=== PATIENT | male | born 1955 | race Caucasian/White ===

== ENCOUNTER → 2016-11-24 | Outpatient (CLI) | payer OTHER ==
--- NOTE | 2016-11-24 08:57 | US ---
EXAMINATION TYPE: US abdomen complete DATE OF EXAM: 11/24/2016 7:51 AM COMPARISON: Correlation CT 01/01/2016. CLINICAL HISTORY: 61-year-old male with LLQ pain with constipation, on meds for cholesterol. TECHNIQUE: Multiple sonographic images of the abdomen were obtained. FINDINGS: EXAM MEASUREMENTS: Liver Length: 16.4cm Gallbladder Wall: 0.2cm CBD: 0.3cm Spleen: 10.0cm Right Kidney: 12.0 x 8.5 x 6.1cm Left Kidney: 12.7 x 6.4 x 5.8cm ANATOMY: Pancreas: Suboptimal visualization of the pancreatic head and tail secondary to shadowing from bowel gas. Visualized neck and body show no gross abnormality. Liver: Borderline enlarged with diffuse increased echogenicity and far field attenuation. The seconda ry and limits assessment for focal lesion. Gallbladder: No abnormal gallbladder distention, wall thickening, pericholecystic fluid, or shadowin g calculi. Evidence for sonographic Manriquez's sign: no CBD: Within normal limits. Spleen: Within normal limits. 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 No hydronephrosis. Left Kidney: No hydronephrosis. There is a 1.5 cm hypoechoic structure exophytic from the upper to m id pole posterior through transmission. Some internal echoes are felt to be artifactual or could repr esent debris. Upper IVC: Suboptimally visualized. Abd Aorta: No evidence for A l IMPRESSION: Borderline hepatomegaly with a marked hepatic steatosis. Correlate with LFTs, lipid profile, and desiree ent risk factors. Normal Values: Liver Length: < 16cm wnl, 17-18cm upper limits, >18cm enlarged Spleen Length = < 13cm Renal Length = 9 - 12cm GB Wall: < 0.3cm CBD: < 0.6cm or < 1.0cm post cholecystectomy
--- NOTE | 2016-11-24 08:59 | US ---
EXAMINATION TYPE: US pelvic limited for male patient DATE OF EXAM: 11/24/2016 7:18 AM COMPARISON: None. CLINICAL HISTORY: 61-year-old male with LLQ pain with constipation. TECHNIQUE: Multiple transabdominal sonographic images of the pelvis were obtained. FINDINGS: The bladder shows no gross abnormality. Both ureteral jets are visualized. Post void volume = 15.3ml, within normal limits. No abnormal fluid collection in the pelvis. IMPRESSION: Bladder shows no gross abnormality. There is some residual post void bladder volume that falls within normal limits; no sonographic evidence for urinary retention. MTDD
--- NOTE | 2016-11-24 10:34 | US ---
EXAMINATION TYPE: US scrotum with doppler. TECHNIQUE: Multiple sonographic images of the scrotum were obtained. Color Doppler and spectral wavef orm analysis of the testicular arteries and veins. DATE OF EXAM: 11/24/2016 8:15 AM COMPARISON: NONE CLINICAL HISTORY: 61-year-old male with scrotal pain at rest for the past 6 months; prior vasectomy w ith reversal ~ 1980. FINDINGS: TESTICLES: Right Testicle: 4.1 x 2.6 x 2.0 cm Left Testicle: 4.5 x 2.3 x 2.1 cm The testicles are relatively symmetrical in size with normal homogeneous echotexture and no hyperemia . There is satisfactory arterial and venous flow on both sides. EPIDIDYMIS HEAD: Right Epididymis: 0.9 x 1.0 x 0.8 cm with a 3 mm epididymal head cyst. Left Epididymis: 0.5 x 1.1 x 0.7 cm with an 8 mm mildly complex epididymal head cyst or spermatoce le. There are moderate bilateral hydroceles with internal low-level echoes. IMPRESSION: 1. No evidence for epididymoorchitis or testicular torsion. 2. An epididymal head cyst on either side, larger on the left side with mild complexity, possible 8 m m spermatocele. 3. Slightly complicated, moderate-sized bilateral hydroceles. Low level echoes suggest internal debri s.
== END ==
LOC: RADUSWWP 07:01
PROVIDERS: ATTEND Family Medicine
DX: R16.0 Hepatomegaly, not elsewhere classified (principal); K76.0 Fatty (change of) liver, not elsewhere classified; N50.3 Cyst of epididymis; N43.3 Hydrocele, unspecified
CPT/HCPCS: 76700; 76856; 76857; 76870; 93975

== ENCOUNTER → 2019-11-20 | Outpatient (CLI) | payer OTHER ==
--- NOTE | 2019-11-20 22:15 | MR ---
EXAMINATION TYPE: MR shoulder RT wo con DATE OF EXAM: 11/20/2019 COMPARISON: NONE HISTORY: Right shoulder pain TECHNIQUE: Multiplanar, multisequence imaging of the right shoulder is performed without contrast. FINDINGS: Rotator Cuff: Distal supraspinatus and infraspinatus tendons are intact with increased signal distall y most prominent in infraspinatus tendon. Subscapularis tendon intact axial image 8. Rotator cuff mu scle bulk preserved. Acromioclavicular Joint: Moderate narrowing and spurring with moderate to severe capsular hypertrophy . Loss of underlying fat plane. Distal acromion morphology unremarkable. Glenohumeral Joint: Moderate to severe narrowing with small to moderate size effusion. No significant spurring. Labrum: The labrum appears grossly intact given limitation of non-arthrogram study. Biceps Tendon: The long head of biceps is in normal location within bicipital groove. Bone marrow signal: No focal abnormal marrow signal is appreciated. Other: No additional significant abnormality is appreciated. IMPRESSION: 1. Tendinosis of distal infraspinatus tendon without rotator cuff or labral tear. 2. Moderate to severe acromioclavicular and glenohumeral joint arthropathy as detailed above.
--- NOTE | 2019-11-20 22:18 | MR ---
EXAMINATION TYPE: MR hip RT wo con DATE OF EXAM: 11/20/2019 COMPARISON: CT abdomen and pelvis January 01, 2016 HISTORY: Right hip pain Standard multiplanar, multisequence MRI departmental protocol Multiplanar, multisequence images of the pelvis focusing on the right hip were acquired. FINDINGS: There is symmetric moderate axial joint space loss in both hips with small to moderate join t effusion slightly greater on the right. No significant spurring or subchondral cystic change. Femor al head shapes are maintained bilaterally. Normal signal intensity is preserved without suspicious ed donita or avascular necrosis. No suspicious edema level of greater lesser trochanters bilaterally. Asymm etric small fat-containing right inguinal hernia. Symmetric benign appearing bilateral groin lymph no edison. Muscle bulk is preserved in both thighs. Some diverticula in the visualized distal sigmoid colon. Prostate gland not well-visualized suspected small in size or surgically absent. No concerning pelvic fluid collection or adenopathy. IMPRESSION: Moderate degenerative changes in both hips as detailed above. Asymmetrically slightly lar lavon small to moderate sized right hip joint effusion noted.
== END | disposition home or self-care (01) ==
LOC: RADMRIMAIN 11:12
DX: M16.11 Unilateral primary osteoarthritis, right hip (principal); M75.81 Other shoulder lesions, right shoulder; M12.811 Other specific arthropathies, not elsewhere classified, right shoulder

== ENCOUNTER 2021-01-01 06:26 | Day surgery (SDC) | payer OTHER ==
[2020-12-30 11:21] VITALS: BMI 36.0
--- NOTE | 2020-12-31 09:39 | HP ---
HISTORY AND PHYSICAL CHIEF COMPLAINT: Right shoulder pain. HISTORY OF PRESENT ILLNESS: The patient is a 65-year-old right-hand dominant gentleman who presents with right shoulder pain worsening over the past 3 months. He is having pain with overhead use and at night. He has tried an injection in addition to therapy without much relief. He has also tried medications and lidocaine patch. He rates his pain 8/10. PAST MEDICAL HISTORY: Significant for heart disease with an arrhythmia, prostate cancer, asthma, and hypercholesterolemia. PAST SURGICAL HISTORY: Significant prostatectomy. CURRENT MEDICATIONS: 1. Aspirin. 2. Naprosyn. 3. [place]. 4. Simvastatin. ALLERGIES: He notes allergies to SULFA. FAMILY HISTORY: Significant for diabetes and heart disease. SOCIAL HISTORY: Significant for previous tobacco use. REVIEW OF SYSTEMS: Sixteen-point review of systems otherwise is reviewed and is noncontributory. PHYSICAL EXAMINATION: On examination, the patient is approximately 5 feet 10 inches, 246 pounds of endomorphic habitus. HEENT exam is nonfocal. Neck is supple. On examination of the right shoulder, he is tender about the anterior subacromial space. He has moderate subacromial crepitus. Active range of motion forward elevation 145 degrees, external rotation with arm at side 70 degrees, internal rotation to L1. Motor strength is 5 minus over 5 for abduction and external rotation. Impingement test, Neer test are positive. His distal neurovascular exam appears intact in the right upper extremity. X-rays of the right shoulder obtained in the office show a type 3 acromion. Mild glenohumeral joint space narrowing is noted. Humeral head to acromial distance is mildly diminished. MRI report 11/20/2019 of the right shoulder shows acromioclavicular joint arthritis along with rotator cuff tendinitis. IMPRESSION: 1. Right shoulder impingement with symptomatic rotator cuff tendinitis. 2. Right acromioclavicular joint arthritis. 3. Right proximal bicipital tendinitis. RECOMMENDATIONS: I talked to the patient at length regarding his condition along with treatment options. At this point, he is continuing to have significant pain and symptomatology despite conservative measures. After thorough discussion, he opts to proceed with surgery. We will plan to proceed with arthroscopic evaluation with probable subacromial decompression, rotator cuff debridement, distal clavicular resection, possible biceps tenotomy. We will likely perform that as an outpatient procedure. Risks and benefits were discussed at length in layman's terms. MMODL / IJN: [id number] /
[~2021-01-01 06:26] MED LIST: DEXAMETHASONE SOD PHOSPHATE 4 MG/ML 1 ML VIAL IV ONE; LACTATED RINGERS 1,000 ML IV SCH; MIDAZOLAM 2 MG/2 ML VIAL IV PRN; ONDANSETRON 4 MG/2 ML VIAL IVP ONE
[2021-01-01] MEDS ORDERED: HYDROmorphone 0.5 MG/0.5 ML SYRINGE IVP PRN (07:00)
[2021-01-01] MEDS ORDERED: LIDOCAINE 1% (10MG/ML) FOR IV START INTRADERMA ONE (07:00)
[2021-01-01] MEDS ORDERED: MIDAZOLAM 2 MG/2 ML VIAL IVP ONE (07:53)
[2021-01-01] MEDS ORDERED: ROPIVACAINE 5 MG/ML 30 ML VIAL ONE (08:00)
[2021-01-01] MEDS ORDERED: LIDOCAINE 1% INJ 10MG/ML (20 ML MDV) ONE (08:00)
[2021-01-01] MEDS ORDERED: fentaNYL (PF) 50 MCG/ML 2 ML AMP ONE (08:00)
[2021-01-01] MEDS ORDERED: SUCCINYLCHOLINE CHLORIDE VIAL 200 MG/10 ML VIAL IV ONE (08:00)
[2021-01-01] MEDS ORDERED: PROPOFOL 10 MG/ML 20 ML VIAL IV ONE (08:00)
[2021-01-01] MEDS ORDERED: EPINEPHrine (PF) 1 ML in SODIUM CHLORIDE 0.9% IRRIGATIO 3,000 ML IRRIGATION ONE ×4 (08:30)
[2021-01-01 09:50] VITALS: TEMP 97.6
--- NOTE | 2021-01-01 09:50 | P.ANPRN ---
Procedure Note - Anesthesia - Nerve Block Performed Right Interscalene Time Out Performed: Yes (:52) Date of Procedure: 01/01/21 Procedure Start Time: Procedure Stop Time: :08 Location of Patient: PreOp Indication: Acute Post-Operative Pain, Requested by Surgeon (Dr Nicole) Sedation Type: Sedate with meaningful contact maintained Preparation: Sterile Prep Position: Supine Catheter: None Needle Types: Pajunk Needle Gauge: Other (see comment) (22g) Ultrasound used to visualize needle placement: Yes Ultrasound used to observe medication spread: Yes Injectate: 0.5% Ropivacaine (see comment for volume) (20cc) Blood Aspirated: No Pain Paresthesia on Injection Noted: No Resistance on Injection: Normal Image Stored and Saved: Yes Events: Uneventful and Well Tolerated
--- NOTE | 2021-01-01 09:50 | P.OP ---
Date of Procedure: 01/01/21 Preoperative Diagnosis: Symptomatic right rotator cuff tear/impingement Postoperative Diagnosis: Same in addition to high-grade partial-thickness tear intra-articular portion long head of biceps, acromioclavicular joint arthritis/impingement Procedure(s) Performed: Right shoulder arthroscopic subacromial decompression/biceps tenotomy/distal clavicular resection/rotator cuff repair Implants: Arthrex 4.75 mm swivel lock anchor 2, 5.5 mm swivel lock anchor 2 Anesthesia: AMBROSIOA, regional Surgeon: Fabio Nicole Salesperson [employer] #1: Chetan Mendoza Estimated Blood Loss (ml): 10 Pathology: none sent Condition: stable Disposition: PACU Indications for Procedure: The patient's a 65-year-old male who presents with persistent/progressive right shoulder pain despite previous conservative measures. A discussion of the risks and benefits of operative intervention versus continued conservative measures was made with the patient. He opted to proceed with surgery. Operative risks to include infection, neurovascular injury, development of blood clots, possible tendon rerupture, possible postoperative stiffness and need for subsequent procedures was discussed. Informed consent was obtained. Operative Findings: As below Description of Procedure: The patient was brought to the operating room, and after induction of general anesthesia was placed in a beachchair position. A preoperative interscalene block was placed for postoperative analgesia. I examined the right shoulder. There was no gross block to passive motion or gross glenohumeral instability. The right upper extremity was prepped and draped in normal fashion. The bony outlines the acromion, distal clavicle, and coracoid process were outlined with a skin marker. The glenohumeral joint was inflated with 50 mL of saline utilizing a spinal needle from posterior approach. A posterior portal was made through a 5 mm skin incision 1 cm medial and inferior to the posterior lateral border time. A blunt trocar was used to easily into the joint. Diagnostic arthroscopy was performed. An anterior portal was made just lateral to the coracoid process entering the joint above the subscapularis tendon. The subs capularis tendon appeared to be intact. Anterior labrum was intact. The inferior recess was inspected. The posterior labrum was intact. There was a high-grade partial-thickness tear of the long head of the biceps involving interarticular portion. It was elected to proceed with release at this point. This was released from the superior labrum with electrocautery and was allowed to retract to the bicipital groove. On inspection the rotator cuff, a full- thickness tear involving the supraspinatus was noted with some retraction. A lateral portal was made 2 centimeters inferior to the anterior lateral border of the acromion. The rotator cuff was then mobilized with a traction suture. The bursal tissue and adhesions were debrided with shaver. This was then brought back to the greater tuberosity. The soft tissue on the undersurface of the acromion was debrided with a motorized shaver and electrocautery clearly defining the anterior medial and lateral borders as well as the distal clavicle. An anterior inferior acromioplasty was performed with a motorized lanette starting anterolateral, then extending this posteriorly, then extending this medially. I converted to a flat acromion and this was verified in the posterior and lateral viewing portals. There was acromioclavicular joint arthritis with impingement and subacromial space. The distal 4 mm of clavicle was resected with a motorized lanette. The greater tuberosity was lightly decorticating with a shaver down to a bleeding bony surface. An accessory superior lateral portals made just off the lateral edge of the acromion for anchor placement. 2 anchors were then placed just off the articular surface with the appropriate starting awl. 4.75 mm anchors preloaded with #2 fiber tape were placed. Good purchase was ob tained. These fiber tapes were then passed the rotator cuff with a scorpion suture passer. A lateral row was created crisscrossing these tapes. 5.5 mm swivel lock anchors x2 were placed laterally. Good purchase was obtained. Final arthroscopic view showed adequate compression at the footprint. The arthroscope was then removed. The portals were closed with simple 3-0 nylon sutures. A sterile dressing was applied in addition to an abductor brace. The patient was then awoken from general anesthesia and transferred to recovery room in good condition. Blood loss was estimated at 10 mL. No complications were incurred. Sponge and needle counts were correct in the case. Sheldon DIAL assisted and the major components of the case to include arm positioning, anchor placement, and rotator cuff repair.
[2021-01-01 10:55] VITALS: RESP 18
[2021-01-01] MEDS ORDERED: HYDROcodone/APAP 10-325MG 1 EACH TAB ONE (11:03)
[2021-01-01] MEDS ORDERED: HYDROcodone/APAP 10-325MG 1 EACH TAB PO ONE (11:05)
[2021-01-01 11:26] VITALS: BP 118/63; PULSE 72
== END 2021-01-01 11:43 | disposition home or self-care (01) ==
LOC: OR 06:26
PROVIDERS: ATTEND Orthopaedic Surgery
DX: M75.121 Complete rotator cuff tear or rupture of right shoulder, not specified as traumatic (principal); M75.41 Impingement syndrome of right shoulder; M19.011 Primary osteoarthritis, right shoulder; S46.111A Strain of muscle, fascia and tendon of long head of biceps, right arm, initial encounter; Z88.2 Allergy status to sulfonamides; E78.5 Hyperlipidemia, unspecified; J44.9 Chronic obstructive pulmonary disease, unspecified; G47.33 Obstructive sleep apnea (adult) (pediatric); M19.90 Unspecified osteoarthritis, unspecified site; Z79.82 Long term (current) use of aspirin; Z79.51 Long term (current) use of inhaled steroids; Z79.899 Other long term (current) drug therapy; Z85.46 Personal history of malignant neoplasm of prostate; E78.00 Pure hypercholesterolemia, unspecified; Z90.79 Acquired absence of other genital organ(s); Z83.3 Family history of diabetes mellitus; Z82.49 Family history of ischemic heart disease and other diseases of the circulatory system; Z87.891 Personal history of nicotine dependence
CPT/HCPCS: 64415; 76942; 29824; 29826; 29827; C1713 ×3; C1894; J2250; J0330; J1100; J0690; J2405; J0171; J2001; J3010; J2795; J2704

== ENCOUNTER → 2022-01-24 | Outpatient (CLI) | payer OTHER ==
--- NOTE | 2022-01-24 22:06 | CT ---
EXAMINATION TYPE: CT chest wo con DATE OF EXAM: 01/24/2022 COMPARISON: Chest x-ray January 11, 2022 and older x-rays. 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 Automated Exposure Control for Dose Reduction was Utilized. TECHNIQUE: CT scan of the thorax is performed without IV contrast. High resolution protocol with 10 mm sequences obtained in 1 mm intervals in supine and prone technique. FINDINGS: LUNGS: The lungs are grossly clear, there is no concerning parenchymal mass identified. No suspicious focal consolidation or groundglass opacity. No significant peripheral reticulation and fibrosis. Th ere is no pleural effusion or pneumothorax seen. No bronchiectasis. MEDIASTINUM: Lack of IV contrast and technique are noted to limit evaluation for mediastinal and dandre cially hilar adenopathy. There are no definitive greater than 1 cm mediastinal lymph nodes. No card iomegaly or pericardial effusion is seen. OTHER: No additional significant abnormality is seen. IMPRESSION: No significant acute or chronic pulmonary process.
== END | disposition home or self-care (01) ==
LOC: RADCTMAIN 17:55
PROVIDERS: ATTEND Internal Medicine Critical Care Medicine
DX: J44.9 Chronic obstructive pulmonary disease, unspecified (principal)
CPT/HCPCS: 71250

== ENCOUNTER 2022-06-21 06:56 | Day surgery (SDC) | payer OTHER ==
[2022-06-17 16:14] VITALS: BMI 34.4
[~2022-06-21 06:56] MED LIST changes: -DEXAMETHASONE SOD PHOSPHATE 4 MG/ML 1 ML VIAL IV ONE; +LIDOCAINE 1% (10MG/ML) FOR IV START INTRADERMA PRN; -MIDAZOLAM 2 MG/2 ML VIAL IV PRN; -ONDANSETRON 4 MG/2 ML VIAL IVP ONE
[2022-06-21 07:21] VITALS: RESP 16; TEMP 97.1
[2022-06-21] MEDS ORDERED: PROPOFOL 10 MG/ML 20 ML VIAL IV ONE (08:05)
--- NOTE | 2022-06-21 08:21 | P.PCN ---
Date of Procedure: 06/21/22 Procedure(s) Performed: BRIEF HISTORY: Patient is a 66-year-old pleasant white male scheduled for an elective colonoscopy as a part of screening for colorectal neoplasia. PROCEDURE PERFORMED: Colonoscopy with biopsy. PREOPERATIVE DIAGNOSIS: Screening for colon cancer. IV sedation per Anesthesia. PROCEDURE: After informed consent was obtained, the patient, was brought into the endoscopy unit. IV sedation was administered by Anesthesia under continuous monitoring. Digital rectal examination was normal. Initially the Olympus CF-160 flexible video colonoscope was then inserted in the rectum, gradually advanced into the cecum without any difficulty. Careful examination was performed as the scope was gradually being withdrawn. Ileocecal valve and the appendiceal orifice were visualized and appeared normal. Prep was excellent. Mucosa of the cecum had 3 mm sessile polyp that was removed by cold biopsy. Mucosa of the, ascending colon, transverse colon, descending colon, sigmoid colon, and rectum appeared normal. In the sigmoid: There was a 5 mm polyp that was removed by cold biopsy. Retroflexion was performed in the rectum and no lesions were seen. The patient tolerated the procedure well. IMPRESSION: 3 mm cecal polyp status post cold biopsy 5 mm sigmoid colon polyp status post cold biopsy RECOMMENDATIONS: Findings of this examination were discussed with the patient as well as his family. He was advised to follow with the biopsy results. If the biopsies reveal adenoma he can have a repeat colonoscopy in 5 years..
[2022-06-21 08:54] VITALS: BP 141/88; PULSE 82
== END 2022-06-21 09:00 | disposition home or self-care (01) ==
LOC: ORWHC2ENDO 06:56
PROVIDERS: ATTEND Internal Medicine Gastroenterology
DX: Z12.11 Encounter for screening for malignant neoplasm of colon (principal); D12.5 Benign neoplasm of sigmoid colon; J44.9 Chronic obstructive pulmonary disease, unspecified; G47.33 Obstructive sleep apnea (adult) (pediatric); Z85.46 Personal history of malignant neoplasm of prostate; Z90.79 Acquired absence of other genital organ(s); Z79.899 Other long term (current) drug therapy; Z79.891 Long term (current) use of opiate analgesic; Z79.51 Long term (current) use of inhaled steroids; Z98.890 Other specified postprocedural states; Z88.0 Allergy status to penicillin
CPT/HCPCS: 88305; 45380; J2704

== ENCOUNTER → 2023-06-20 | Outpatient (CLI) | payer OTHER ==
--- NOTE | 2023-06-20 16:38 | MR ---
EXAMINATION TYPE: MR lumbar spine wo con DATE OF EXAM: 06/20/2023 2:07 PM COMPARISON: None. CLINICAL INDICATION: Male, 67 years old with history of Lumbar pain [id number]; Low back pain into katia low er extremities TECHNIQUE: Multi planar, multi sequence imaging was performed utilizing: T1-weighted, T2-weighted, a nd turbo inversion recovery imaging of the lumbar spine. IV Contrast: cc . None. FINDINGS: Alignment: The lumbar vertebral bodies have preserved heights with grade 1 anterolisthesis of L5 on S 1. Cord: The conus medullaris and the distal spinal cord appear unremarkable with regards to their signa l intensity and morphology. Bones/Discs: Bone signal is within normal limits. No abnormal bony edema on inversion recovery sequen marcial. Multilevel disc degenerative is noted and most pronounced at the L5-S1 with disc space narrowing disc desiccation and facet joint arthropathy.. Intervertebral disc signal is maintained. T12-L1: No evidence of significant spinal canal stenosis or neural foraminal stenosis. L1-L2: No evidence of significant spinal canal stenosis or neural foraminal stenosis. L2-L3: No evidence of significant spinal canal stenosis or neural foraminal stenosis. L3-L4: No evidence of significant spinal canal stenosis or neural foraminal stenosis. L4-L5: No evidence of significant spinal canal stenosis or neural foraminal stenosis. L5-S1: Disc uncovering from grade 1 anterolisthesis and facet joint arthropathy with mild spinal lori l stenosis and moderate bilateral neural foraminal stenosis. No significant spinal canal or neural foraminal stenosis in the remainder of the visualized levels. Other findings: None. IMPRESSION: 1. No definitive evidence of disc herniation or significant spinal canal stenosis. 2. Grade 1 anterolisthesis of L5 on S1 with moderate bilateral neural foraminal stenosis.
== END | disposition home or self-care (01) ==
LOC: RADMRIMAIN 13:03
PROVIDERS: ATTEND Orthopaedic Surgery
DX: M47.26 Other spondylosis with radiculopathy, lumbar region (principal); M43.17 Spondylolisthesis, lumbosacral region; M99.73 Connective tissue and disc stenosis of intervertebral foramina of lumbar region
CPT/HCPCS: 72148

== ENCOUNTER → 2023-08-17 | Outpatient (CLI) | payer OTHER ==
[2023-08-17 13:23] VITALS: BP 159/94; PULSE 60; RESP 16; TEMP 98.2
--- NOTE | 2023-08-17 14:54 | P.PAINPG ---
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 Pt states pain level is provoked at 10 /10 in intensity, constant, localized in the lower lumbar spine, sharp in character w shooting pain towards the L hip and LLE. Pain is provoked by L sided weight bearing activity. Pain is alleviated by PT weekly x 2 yrs w last visit in Jun 2023, use of a hot tub, yoga exercises / stretches daily x 2 mo which he is currently in, medications ([place], Naproxen), topical , repositioning and rest. Oswestry axial pain score at 14. PMH: OA, CA, Hyperlipidemia PSH: R RCT Repair (2020), Colonoscopy w Biopsy (2021), Prostatectomy SH: Never smoker, Rare ETOH use, No illicit drug use. history FH: Non contributory All: See list Meds: See list REVIEW OF ORGAN SYSTEMS: CONSTITUTIONAL: No fevers or chills. No recent weight loss. NEUROLOGICAL: + numbness and tingling along the distal e xtremities. No seizure disorders or headaches. MUSCULOSKELETAL: + pain PSYCHIATRIC: Denies current depression or suicidal thoughts. Physical Examinations : Constitutional : Cooperative , not in acute distress . Neurologic : Cranial nerve II to XII intact. No focal neurological deficits. Psychiatric : alert & oriented x 3. Matching mood & appropriate affect. Judgment & insight intact. Musculoskeletal : Cervical Spine Motor strength in the deltoid and biceps: Normal right side. Normal Left side Motor strength biceps and the wrist extensors: Normal right side . Normal left side Motor strength in the triceps muscle: Normal right side. Normal left side Deep tendon reflexes: Normal at the biceps. Normal at Brachioradialis. Normal at triceps Vertebral body tenderness to deep palpation over Cervical facet loading test: positive bilaterally Spurling test: positive bilaterally Neck distraction test: positive bilaterally Altaf sign: positive bilaterally Lumbar spine Motor strength lower extremities ,thigh and legs 5/5 Right side , 5/5 Left side Deep tendon reflexes : Normal Knee Jerk. Normal Ankle Jerk Vertebral body tenderness over L5 Perez Test positive Lumbar facet Loading Test: positive Right / positive Left Range of motion of the lumbar spine Flexion 30 degrees, extension 10 degrees Straight Leg Raise test: Left/ Right positive at 35 degrees Rudy test: positive right / positive left. Severe tenderness over the Sacroiliac joint on the Right / Left sides Gaenslen test: positive bilaterally Seated flexion test: positive bilaterally. Sacral spine : Severe tenderness over the Sacroiliac joint: right side / left side Range of motion: Flexion of the lumbar spine <60 degrees Range of motion: Extension of the lumbar spine <20 degrees Gaenslen's Test positive Marcin's Test positive Rudy test: positive right side / left side Thigh Thrust Test Sacral Thrust Test Imaging: MRI noncontrast of the lumbar spine from 06/20/23 review Assessment/ Plan : Lumbar DDD Recommendation of BL TFESI L5-S1 #1. May need a series of injections for optimal pain relief. Risks, benefits of procedure discussed and patient verbalized understanding. Admits to anti- coagulant use or medical history of diabetes. Protocol for discontinuation/ continuation of medications nancy procedure discussed. Minimal anesthesia provided, if clinically indicated, consisting of Versed and Fentanyl. All questions answered. I have spent greater than 30 minutes on patient care today. Dr Vinson was available by phone for the evaluation of this patient. The time was used to review the medical records including relevant urine studies and Prescription history (MAPs), review of the available imaging, evaluation and examination of the patient, coordination of care with the medical staff and if applicable referring physicians, as well as creation of the medical record PQRS Narrative: Smoking Status Never smoker Home Medications: Ambulatory Orders Aspirin [Adult Low Dose Aspirin EC] 81 mg PO DAILY 01/01/16 Naproxen 500 mg PO Q12HR 01/01/16 Simvastatin [Zocor] 40 mg PO HS 01/01/16 Albuterol Inhaler [Ventolin Hfa Inhaler] 2 puff INHALATION RT-TID PRN 12/30/20 Budesonide-Formot 160-4.5 Mcg [Symbicort 160-4.5 Mcg Inhaler] 2 puff INHALATION BID PRN 12/30/20 Fluticasone Nasal [place] [Flonase Nasal [place]] 2 spr EA NOSTRIL BID 12/30/20 HYDROcodone/APAP 10-325MG [[place] 10-325] 1 tab PO QID PRN 12/30/20 Lidocaine 5% Patch [Lidoderm] 1 patch TOPICAL DAILY 12/30/20 Ammonium Lactate Cream [Lac-Hydrin 12% Cream] 1 applic TOPICAL HS 06/17/22 Diclofenac Sodium Gel [Voltaren Gel] 2 gm TOPICAL DAILY 06/17/22 Ketoconazole 2% Shampoo [Nizoral] 1 applic TOPICAL Q2D 06/17/22 Nystatin 1 applic TOPICAL DAILY PRN 06/17/22 Sildenafil Citrate [Viagra] 100 mg PO DAILY PRN 06/17/22 Triamcinolone Acetonide [Triamcinolone Acetonide 0.025%] 1 applic TOPICAL Q7D 06/17/22 methocarbamoL [Methocarbamol] 500 mg PO BID PRN 06/17/22 Controlled Substance Measures - Controlled Substance Measures Is patient prescribed a controlled substance at discharge?: No
== END ==
LOC: PNWHC3 12:34
PROVIDERS: ATTEND Specialist
DX: M43.16 Spondylolisthesis, lumbar region (principal); M51.16 Intervertebral disc disorders with radiculopathy, lumbar region; M48.061 Spinal stenosis, lumbar region without neurogenic claudication; E78.5 Hyperlipidemia, unspecified; M19.90 Unspecified osteoarthritis, unspecified site; Z79.82 Long term (current) use of aspirin; Z85.89 Personal history of malignant neoplasm of other organs and systems; Z88.2 Allergy status to sulfonamides
CPT/HCPCS: 99211

== ENCOUNTER 2023-08-31 08:18 | Day surgery (SDC) | payer OTHER ==
[2023-08-31] MEDS ORDERED: LACTATED RINGERS 1,000 ML IV SCH (08:36)
[2023-08-31] MEDS ORDERED: methylPREDNISolone ACETATE 80 MG/ML 1 ML VIAL ONE (09:05)
[2023-08-31] MEDS ORDERED: IOPAMIDOL M200 10 ML VIAL ONE (09:05)
--- NOTE | 2023-08-31 09:19 | P.PCN ---
Date of Procedure: 08/31/23 Procedure(s) Performed: PREOPERATIVE DIAGNOSIS: 1-Lumbar radiculopathy . 2-lumbar degenerative disc disease. 3-lumbar spondylosis with lumbar facet arthropathy without myelopathy POSTOPERATIVE DIAGNOSIS: 1-lumbar radiculopathy. 2-lumbar degenerative disc disease. 3-lumbar spondylosis with facet arthropathy without myelopathy PROCEDURE 1. Transforaminal epidural steroid injection under fluoroscopic guidance at Bilateral L5-S1 level. (Fluoroscopy images stored on file in the radiology Department ) 2. Lumbar epidurogram . ANESTHESIA: Local with 1% lidocaine 3 ml. EBL: Minimal PROCEDURE INDICATION: The patient with low back pain and radiculopathy symptoms unresponsive to conservative treatment. PROCEDURE DESCRIPTION / TECHNIQUE: The patient was seen and identified in the preoperative area. Risks, benefits, complications, and alternatives were discussed with the patient. The patient agreed to proceed with the procedure and signed the consent. IV was started, and vital signs were stable. Patient was taken to the OR and time out was completed. The patient was placed in the prone position on procedure table and a pillow was placed under the abdomen to reduce lumbar lordosis. The lumbosacral area was prepped and draped in the usual sterile fashion. Critical pause was taken. Vital signs were closely monitored during the procedure. Using oblique fluoroscopy, the chin of the ``Jaswinder dog at Right L5-S1 level was identified, and the skin and deeper tissues just below was localized with 1% lidocaine. Subsequently, a 22-gauge 5-inch spinal needle was advanced under a tunneled view fluoroscopic guidance just underneath the chin of the ``Jaswinder dog at the right L5-S1 Under lateral fluoroscopy, the needle was then advanced to the posterior border of the interforaminal space. After negative aspiration of CSF and blood and with no paresthesias, 1 mL Isovue 200 contrast dye was injected excellent epidurogram and outlining of the nerve root Subsequently, 3 mL of block solution containing 30 mg Depo-Medrol and 2 mL of 0.9% normal saline PF was injected. Needle was removed and the same procedure was repeated at the Left L5-S1. At the end of the procedure, skin was cleansed, and bandages were applied. COMPLICATIONS:none DISPOSITION / PLANS: The patient was placed in a supine position and transferred to the recovery area in a stable condition for observation. There was no evidence of lower extremity motor or sensory deficit after the procedure. Patient was discharged from the recovery room after meeting discharge criteria. Home discharge instructions were given to the patient by the staff. The patient was reexamined prior to discharge.
[2023-08-31 09:36] VITALS: RESP 16
[2023-08-31 09:54] VITALS: BP 132/70; PULSE 74
--- NOTE | 2023-08-31 10:48 | FL ---
Intraoperative/procedural fluoroscopic services were provided. Total fluoroscopy time is 13.5 seconds with a total of 1 submitted images to PACS. Please see the operative/procedural note for further det ails. DAP: [id number] mGym2
== END 2023-08-31 09:50 | disposition home or self-care (01) ==
LOC: ORPAIN 08:18
PROVIDERS: ATTEND Specialist
DX: M51.16 Intervertebral disc disorders with radiculopathy, lumbar region (principal); M47.26 Other spondylosis with radiculopathy, lumbar region; Z88.2 Allergy status to sulfonamides; Z79.82 Long term (current) use of aspirin
CPT/HCPCS: 64483; J1040; Q9966

== ENCOUNTER → 2023-09-21 | Outpatient (CLI) | payer OTHER ==
[2023-09-21 12:48] VITALS: BP 148/72; PULSE 65; RESP 15; TEMP 98.7
--- NOTE | 2023-09-21 15:06 | P.PAINPG ---
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 Pt states he experienced 70 % pain relief x 3 wks s/p procedure. Pt states pain level is provoked at 3/10 in intensity, constant, primarily axial, localized in the lower lumbar spine, sharp in character w shooting pain towards the L hip and LLE. Pain is provoked by L sided weight bearing activity. Pain is alleviated by PT weekly x 2 yrs w last visit in Jun 2023, use of a hot tub, yoga exercises / stretches daily x 2 mo which he is currently in, medications, topical , repositioning and rest. Oswestry axial pain score at 12. Interventional procedures include BL TFESI L5-S1 #1 Medications include [place], Naproxen REVIEW OF ORGAN SYSTEMS: CONSTITUTIONAL: No fevers or chills. No recent weight loss. NEUROLOGICAL: + numbness and tingling along the distal extremities. No seizure disorders or headaches. MUSCULOSKELETAL: + pain PSYCHIATRIC: Denies current depression or suicidal thoughts. Physical Examinations : Constitutional : Cooperative , not in acute distress . Neurologic : Cranial nerve II to XII intact. No focal neurological deficits. Psychiatric : alert & oriented x 3. Matching mood & appropriate affect. Judgment & insight intact. Musculoskeletal : Cervical Spine Motor strength in the deltoid and biceps: Normal right side. Normal Left side Motor strength biceps and the wrist extensors: Normal right side . Normal left side Motor strength in the triceps muscle: Normal right side. Normal left side Deep tendon reflexes: Normal at the biceps. Normal at Brachioradialis. Normal at triceps Vertebral body tenderness to deep palpation over Cervical facet loading test: positive bilaterally Spurling test: positive bilaterally Neck distraction test: positive bilaterally Altaf sign: positive bilaterally Lumbar spine Motor strength lower extremities ,thigh and legs 5/5 Right side , 5/5 Left side Deep tendon reflexes : Normal Knee Jerk. Normal Ankle Jerk Vertebral body tenderness over L5 Perez Test positive Lumbar facet Loading Test: positive Right / positive Left Range of motion of the lumbar spine Flexion 30 degrees, extension 10 degrees Straight Leg Raise test: Left/ Right positive at 35 degrees Rudy test: positive right / positive left. Severe tenderness over the Sacroiliac joint on the Right / Left sides Gaenslen test: positive bilaterally Seated flexion test: positive bilaterally. Sacral spine : Severe tenderness over the Sacroiliac joint: right side / left side Range of motion: Flexion of the lumbar spine <60 degrees Range of motion: Extension of the lumbar spine <20 degrees Gaenslen's Test positive Marcin's Test positive Rudy test: positive right side / left side Thigh Thrust Test Sacral Thrust Test Imaging: MRI noncontrast of the lumbar spine from 06/20/23 review Assessment/ Plan : Lumbar DDD Will manage residual pain and may RTC on an as needed basis. All questions answered. I have spent greater than 30 minutes on patient care today. Dr Vinson was available by phone for the evaluation of this patient. The time was used to review the medical records including relevant urine studies and Prescription his tory (MAPs), review of the available imaging, evaluation and examination of the patient, coordination of care with the medical staff and if applicable referring physicians, as well as creation of the medical record PQRS Narrative: Smoking Status Never smoker Hx Alcohol Use (MH) No Home Medications: Ambulatory Orders Aspirin [Adult Low Dose Aspirin EC] 81 mg PO QAM 01/01/16 Naproxen 500 mg PO Q12HR PRN 01/01/16 Simvastatin [Zocor] 40 mg PO HS 01/01/16 Albuterol Inhaler [Ventolin Hfa Inhaler] 2 puff INHALATION RT-TID PRN 12/30/20 Budesonide-Formot 160-4.5 Mcg [Symbicort 160-4.5 Mcg Inhaler] 2 puff INHALATION BID PRN 12/30/20 Fluticasone Nasal [place] [Flonase Nasal [place]] 2 spr EA NOSTRIL BID 12/30/20 HYDROcodone/APAP 10-325MG [[place] 10-325] 1 tab PO QID PRN 12/30/20 Lidocaine 5% Patch [Lidoderm] 1 patch TOPICAL TID PRN 12/30/20 Ammonium Lactate Cream [Lac-Hydrin 12% Cream] 1 applic TOPICAL HS PRN 06/17/22 Diclofenac Sodium Gel [Voltaren Gel] 2 gm TOPICAL DAILY PRN 06/17/22 Ketoconazole 2% Shampoo [Nizoral] 1 applic TOPICAL Q3D 06/17/22 Nystatin 1 applic TOPICAL DAILY PRN 06/17/22 Sildenafil Citrate [Viagra] 100 mg PO DAILY PRN 06/17/22 Triamcinolone Acetonide [Triamcinolone Acetonide 0.025%] 1 applic TOPICAL Q7D PRN 06/17/22 methocarbamoL [Methocarbamol] 750 mg PO QID 06/17/22 amLODIPine BESYLATE 5 mg PO HS 08/29/23 Controlled Substance Measures - Controlled Substance Measures Is patient prescribed a controlled substance at discharge?: No
== END ==
LOC: PNWHC3 11:02
PROVIDERS: ATTEND Specialist
DX: M51.36 Other intervertebral disc degeneration, lumbar region (principal); M47.816 Spondylosis without myelopathy or radiculopathy, lumbar region; Z79.01 Long term (current) use of anticoagulants; Z79.82 Long term (current) use of aspirin; Z88.2 Allergy status to sulfonamides
CPT/HCPCS: 99211

== ENCOUNTER → 2023-10-04 | Outpatient (CLI) | payer OTHER ==
[2023-10-04 17:18] LABS: Blood Urea Nitrogen 18.2 mg/dL (9.0-27.0); Calcium 9.5 mg/dL (8.7-10.3); Carbon Dioxide 22.9 mmol/L (21.6-31.8); Chloride 107 mmol/L (96-109); Glucose 126 mg/dL (70-110); Potassium 4.4 mmol/L (3.5-5.5); Sodium 140 mmol/L (135-145)
[2023-10-04 17:19] LABS: Basophils % (A) 1.3 %; Eosinophils # (A) 0.59 X 10*3/uL (0.04-0.35); Eosinophils % (A) 7.8 %; HCT 43.5 % (39.6-50.0); HGB 14.2 g/dL (13.0-17.0); Lymphocytes # (A) 2.15 X 10*3/uL (0.90-5.00); Lymphocytes % (A) 28.5 %; MCH 30.4 pg (27.0-32.0); MCHC 32.6 g/dL (32.0-37.0); MCV 93.1 FL (80.0-97.0); Mean Platelet Volume 12.1 FL (9.5-12.2); Monocytes # (A) 0.63 X 10*3/uL (0.20-1.00); Monocytes % (A) 8.4 %; NRBC Per 100 WBC 0 X 10*3/uL (0.00-0.01); Neutrophils # (A) 4.05 X 10*3/uL (1.80-7.70); Neutrophils % (A) 53.7 %; Platelet Count 244 X 10*3/uL (140-440); RBC 4.67 X 10*6/uL (4.40-5.60); RDW 12.8 % (11.5-14.5); WBC 7.54 X 10*3/uL (4.50-10.00)
== END | disposition home or self-care (01) ==
LOC: LABWHC1 08:32
PROVIDERS: ATTEND Orthopaedic Surgery
DX: Z01.818 Encounter for other preprocedural examination (principal); I45.10 Unspecified right bundle-branch block; M23.91 Unspecified internal derangement of right knee; R94.31 Abnormal electrocardiogram [ECG] [EKG]
CPT/HCPCS: 36415; 80048; 85025; 93005

== ENCOUNTER 2023-10-13 08:06 | Day surgery (SDC) | payer OTHER ==
[2023-10-09 16:01] VITALS: BMI 36.1
--- NOTE | 2023-10-12 08:41 | P.HPOR ---
History of Present Illness H&P Date: 10/12/23 Chief Complaint: Right knee pain Patient is a 68-year-old retired gentleman who presents with right knee pain after an injury July of this year. He stepped off a curb and twisted his knee. He notes medial and anterior pain ever since. He is having a difficult time with normal ambulation. He notes buckling along with stiffness and swelling. He feels the knee is unstable. His tried previous bracing, injections, and medications without much relief. Review of Systems Negative except as in HPI Past Medical History Past Medical History: Cancer, COPD, GERD/Reflux, Hyperlipidemia, Hypertension, Osteoarthritis (OA), Skin Disorder, Sleep Apnea/CPAP/BIPAP Additional Past Medical History / Comment(s): prostate ca 2012, uses CPAP History of Any Multi-Drug Resistant Organisms: None Reported Past Surgical History: Orthopedic Surgery, Prostate Surgery Additional Past Surgical History / Comment(s): prostatectomy, right knee arthroscopy,rt shoulder reconstructive repair Past Anesthesia/Blood Transfusion Reactions: No Reported Reaction Past Psychological History: No Psychological Hx Reported Smoking Status: Former smoker Past Alcohol Use History: Occasional Additional Past Alcohol Use History / Comment(s): smoked a pipe for a few years 40 yrs. ago(1978) Past Drug Use History: None Reported - Past Family History Mother Family Medical History: Diabetes Mellitus Additional Family Medical History / Comment(s): heart problems Medications and Allergies Home Medications Medication Instructions Recorded Confirmed Type Aspirin [Adult Low Dose Aspirin EC] 81 mg PO QAM 01/01/16 10/09/23 History Naproxen 500 mg PO Q12HR PRN 01/01/16 10/09/23 History Simvastatin [Zocor] 40 mg PO HS 01/01/16 10/09/23 History Albuterol Inhaler [Ventolin Hfa 2 puff INHALATION RT-TID PRN 12/30/20 10/09/23 History Inhaler] Budesonide-Formot 160-4.5 Mcg 2 puff INHALATION BID PRN 12/30/20 10/09/23 History [Symbicort 160-4.5 Mcg Inhaler] Fluticasone Nasal [place] [Flonase 2 spr EA NOSTRIL BID 12/30/20 10/09/23 History Nasal [place]] HYDROcodone/APAP 10-325MG [[place] 1 tab PO QID PRN 12/30/20 10/09/23 History 10-325] L.idocaine 5% Patch [Lidoderm] 1 patch TOPICAL TID PRN 12/30/20 10/09/23 History Ammonium Lactate Cream [Lac-Hydrin 1 applic TOPICAL HS PRN 06/17/22 10/09/23 History 12% Cream] Diclofenac Sodium Gel [Voltaren 2 gm TOPICAL DAILY PRN 06/17/22 10/09/23 History Gel] Ketoconazole 2% Shampoo [Nizoral] 1 applic TOPICAL Q48H 06/17/22 10/09/23 History Nystatin 1 applic TOPICAL DAILY PRN 06/17/22 10/09/23 History Sildenafil Citrate [Viagra] 100 mg PO DAILY PRN 06/17/22 10/09/23 History Triamcinolone Acetonide 1 applic TOPICAL DIRECTED PRN 06/17/22 10/09/23 History [Triamcinolone Acetonide 0.025%] methocarbamoL [Methocarbamol] 750 mg PO QID 06/17/22 10/09/23 History amLODIPine BESYLATE 5 mg PO HS 08/29/23 10/09/23 History Cetirizine HCl [Zyrtec] 10 mg PO DAILY 10/09/23 10/09/23 History Allergies Allergy/AdvReac Type Severity Reaction Status Date / Time Sulfa (Sulfonamide Allergy joint Verified 10/09/23 15:44 Antibiotics) swelling,pain,palpitations Physical Examination - Knee right Appearance: effusion Effusion grade: grade 2 Varus alignment in stance: 5 degrees Tenderness with palpation: anterior, medial Pain: throughout ROM Gait: limping ROM: extension: -10 degrees ROM: flexion: 100 degrees Strength: extension: 5/5 Strength: flexion: 5/5 Meniscal tests: medial meniscal tests: positive, medial joint line pain: positive Results Patient is a well-developed well-nourished male approximately 5 foot 10, 246 pounds of endomorphic habitus. HEENT exam is nonfocal, neck is supple. He has painless passive motion of the right hip. Straight leg raise is negative. He is tender along the medial joint line of the right knee. Collaterals are s table, Henrietta was negative, Conner's elicits medial pain. His distal neurovascular appears intact in the right lower extremity. - Diagnostic results Knee x-ray: image reviewed (3 views of the right knee obtained in the office show moderate medial and patellofemoral compartment narrowing) Assessment and Plan Assessment: Right knee internal derangement/symptomatic medial meniscal tear Right knee moderate medial and patellofemoral compartment osteoarthrosis Plan: I talked to the patient at length regarding his condition along with treatment options. At this point he is quite symptomatic having both pain and mechanical symptoms after this acute injury despite attempted conservative measures. After a thorough discussion he opts to proceed with surgery. We'll proceed with right knee arthroscopy with probable partial medial meniscectomy. Risks and benefits were discussed at length in layman's terms. We will likely perform that as an outpatient procedure.
[~2023-10-13 08:06] MED LIST changes: +DEXAMETHASONE SOD PHOSPHATE 4 MG/ML 1 ML VIAL IV ONE; +MIDAZOLAM 2 MG/2 ML VIAL IV PRN; +ONDANSETRON 4 MG/2 ML VIAL IVP ONE
[2023-10-13] MEDS ORDERED: PROPOFOL 10 MG/ML 20 ML VIAL IV ONE (09:50)
[2023-10-13] MEDS ORDERED: LIDOCAINE 1% INJ 10MG/ML (20 ML MDV) ONE (09:50)
[2023-10-13] MEDS ORDERED: fentaNYL (PF) 50 MCG/ML 2 ML AMP ONE (09:50)
[2023-10-13] MEDS ORDERED: MIDAZOLAM 2 MG/2 ML VIAL ONE (09:50)
[2023-10-13] MEDS ORDERED: EPINEPHrine (PF) 1 ML in SODIUM CHLORIDE 0.9% IRRIGATIO 3,000 ML IRRIGATION ONE ×4 (09:53)
--- NOTE | 2023-10-13 10:44 | P.OP ---
Date of Procedure: 10/13/23 Preoperative Diagnosis: Right knee internal derangement Postoperative Diagnosis: Right knee posterior medial meniscal tear/grade 4 chondral injury distal medial portion medial femoral condyle 4 x 5 mm Procedure(s) Performed: Right knee arthroscopic partial medial meniscectomy/microfracture medial femoral condyle Anesthesia: AMBROSIOA Surgeon: Fabio Nicole Estimated Blood Loss (ml): 10 Pathology: none sent Condition: stable Disposition: PACU Indications for Procedure: The patient's a 68-year-old male who presents with progressive right knee pain and mechanical symptoms despite conservative measures. A discussion of the risks and benefits of operative intervention versus continued conservative measures was made with the patient. He opted to proceed with surgery. Operative risks to include infection, neurovascular blood clots, possible worsening of symptoms, possible need for subsequent procedures was discussed. Informed consent was obtained. Operative Findings: As below Description of Procedure: The patient was brought to the operating room, and after induction of general anesthesia examined the right knee. Collaterals were stable, Henrietta was negative, and posterior drawer was negative. The right lower extremity was prepped and draped in a normal fashion. A superior lateral portal was made through a 3 mm skin incision superior and lateral to the patella. This was used for outflow. A lateral portal was made through a 5 mm vertical skin incision lateral to the patella tendon above the joint line. Diagnostic arthroscopy was performed. On inspection of the medial compartment, a complex tear involving the posterior horn of the medial meniscus in the white-red junction was noted. This was debrided back to stable base with straight baskets and a motorized shaver. The remaining medial meniscus was stable and intact. A grade 4 chondral defect was noted involving the distal medial portion of the medial femoral condyle measuring 3 x 4 mm. Microfracture was performed utilizing a power pick breeching the subchondral surface down to the bone marrow elements. On inspection of the notch, the anterior cruciate ligament appeared to be intact. On inspection of the lateral compartment, no significant meniscal or cartilage pathology was noted. On inspection of the patellofemoral articulation there was chondral fibrillation and diffuse grade 2 chondral changes however no loose chondral fragments. The gutters were clear debris. The knee was then thoroughly irrigated. The portals were closed with Steri- Strips. A sterile dressing was applied in addition to a compression stocking. The patient was awoken from general anesthesia and transferred to recovery room in good condition. Blood loss was estimated at 10 mL. No complications were incurred.
[2023-10-13] MEDS: HYDROmorphone 0.5 MG/0.5 ML SYRINGE IVP PRN ×2 (11:04→11:15)
[2023-10-13 11:17] VITALS: TEMP 97
[2023-10-13 12:13] VITALS: BP 111/67; PULSE 70; RESP 16
== END 2023-10-13 12:40 | disposition home or self-care (01) ==
LOC: OR 08:06
PROVIDERS: ATTEND Orthopaedic Surgery
DX: S83.241A Other tear of medial meniscus, current injury, right knee, initial encounter (principal); K21.9 Gastro-esophageal reflux disease without esophagitis; E78.5 Hyperlipidemia, unspecified; I10 Essential (primary) hypertension; I45.10 Unspecified right bundle-branch block; M19.90 Unspecified osteoarthritis, unspecified site; G47.33 Obstructive sleep apnea (adult) (pediatric); J44.9 Chronic obstructive pulmonary disease, unspecified; Z85.46 Personal history of malignant neoplasm of prostate; Z87.891 Personal history of nicotine dependence; Z83.3 Family history of diabetes mellitus; Z79.51 Long term (current) use of inhaled steroids; Z79.82 Long term (current) use of aspirin; Z79.899 Other long term (current) drug therapy; Z88.2 Allergy status to sulfonamides; Z88.1 Allergy status to other antibiotic agents; Z98.890 Other specified postprocedural states; X58.XXXA Exposure to other specified factors, initial encounter
CPT/HCPCS: 29881; 29879; J2250; J1100; J0690; J2405; J0171; J2001; J3010; J2704; J1170

== ENCOUNTER → 2024-01-08 | Outpatient (CLI) | payer OTHER ==
[2024-01-08 11:38] VITALS: BP 128/78; PULSE 101; RESP 15; TEMP 98.6
--- NOTE | 2024-01-08 14:08 | P.PAINPG ---
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 He states his last BL TFESI L5-S1 provided him 70% pain relief x 8 wks s/p procedure. He underwent a R Knee Arthroplasty in Oct 2023. Pt states pain level is provoked at 2 /10 in intensity, constant, predominantly axial, localized in the lower lumbar spine, sharp in character w occasional shooting pain towards the L hip and LLE. Pain is provoked by L sided weight bearing activity. Pain is alleviated by PT weekly x 2 yrs w last visit in Jun 2023, use of a hot tub, yoga exercises / stretches daily x 2 mo which he is currently in, medications, topical , repositioning and rest. Oswestry axial pain score at 12. Interventional procedures include BL TFESI L5-S1 #1 Medications include [place], Neurontin, Naproxen, Robaxin, Lidoderm REVIEW OF ORGAN SYSTEMS: CONSTITUTIONAL: No fevers or chills. No recent weight loss. NEUROLOGICAL: + numbness and tingling along the distal extremities. No seizure disorders or headaches. MUSCULOSKELETAL: + pain PSYCHIATRIC: Denies current depression or suicidal thoughts. Physical Examinations : Constitutional : Cooperative , not in acute distress . Neurologic : Cranial nerve II to XII intact. No focal neurological deficits. Psychiatric : alert & oriented x 3. Matching mood & appropriate affect. Judgment & insight intact. Musculoskeletal : Cervical Spine Motor strength in the deltoid and biceps: Normal right side. Normal Left side Motor strength biceps and the wrist extensors: Normal right side . Normal left side Motor strength in the triceps muscle: Normal right side. Normal left side Deep tendon reflexes: Normal at the biceps. Normal at Brachioradialis. Normal at triceps Vertebral body tenderness to deep palpation over Cervical facet loading test: positive bilaterally Spurling test: positive bilaterally Neck distraction test: positive bilaterally Altaf sign: positive bilaterally Lumbar spine Motor strength lower extremities ,thigh and legs 5/5 Right side , 5/5 Left side Deep tendon reflexes : Normal Knee Jerk. Normal Ankle Jerk Vertebral body tenderness over L5 Perez Test positive Lumbar facet Loading Test: positive Right / positive Left Range of motion of the lumbar spine Flexion 30 degrees, extension 10 degrees Straight Leg Raise test: Left/ Right positive at 35 degrees Rudy test: positive right / positive left. Severe tenderness over the Sacroiliac joint on the Right / Left sides Gaenslen test: positive bilaterally Seated flexion test: positive bilaterally. Sacral spine : Severe tenderness over the Sacroiliac joint: right side / left side Range of motion: Flexion of the lumbar spine <60 degrees Range of motion: Extension of the lumbar spine <20 degrees Gaenslen's Test positive Marcin's Test positive Rudy test: positive right side / left side Thigh Thrust Test Sacral Thrust Test Imaging: MRI noncontrast of the lumbar spine from 06/20/23 review Assessment/ Plan : Lumbar DDD Will manage residual pain and may RTC on an as needed basis. All questions answered. I have spent greater than 30 minutes on patient care today. Dr Vinson was available by phone for the evaluation of this patient. The time was used to review the medical records including relevant urine studies and Prescription history (MAPs), review of the available imaging, evaluation and examination of the patient, coordination of care with the medical staff and if applicable referring physicians, as well as creation of the medical record PQRS Narrative: Smoking Status Never smoker Hx Alcohol Use (MH) No Home Medications: Ambulatory Orders Aspirin [Adult Low Dose Aspirin EC] 81 mg PO QAM 01/01/16 Naproxen 500 mg PO Q12HR PRN 01/01/16 Simvastatin [Zocor] 40 mg PO HS 01/01/16 Albuterol Inhaler [Ventolin Hfa Inhaler] 2 puff INHALATION RT-TID PRN 12/30/20 Budesonide-Formot 160-4.5 Mcg [Symbicort 160-4.5 Mcg Inhaler] 2 puff INHALATION BID PRN 12/30/20 Fluticasone Nasal [place] [Flonase Nasal [place]] 2 spr EA NOSTRIL BID 12/30/20 HYDROcodone/APAP 10-325MG [[place] 10-325] 1 tab PO QID PRN 12/30/20 Lidocaine 5% Patch [Lidoderm] 1 patch TOPICAL TID PRN 12/30/20 Ammonium Lactate Cream [Lac-Hydrin 12% Cream] 1 applic TOPICAL HS PRN 06/17/22 Diclofenac Sodium Gel [Voltaren Gel] 2 gm TOPICAL DAILY PRN 06/17/22 Ketoconazole 2% Shampoo [Nizoral] 1 applic TOPICAL Q48H 06/17/22 Nystatin 1 applic TOPICAL DAILY PRN 06/17/22 Sildenafil Citrate [Viagra] 100 mg PO DAILY PRN 06/17/22 Triamcinolone Acetonide [Triamcinolone Acetonide 0.025%] 1 applic TOPICAL DIRECTED PRN 06/17/22 methocarbamoL [Methocarbamol] 750 mg PO QID 06/17/22 amLODIPine BESYLATE 5 mg PO HS 08/29/23 Cetirizine HCl [Zyrtec] 10 mg PO DAILY 10/09/23 Gabapentin [Neurontin] 100 mg PO TID 10/13/23 Controlled Substance Measures - Controlled Substance Measures Is patient prescribed a controlled substance at discharge?: No
== END ==
LOC: PNWHC3 10:49
PROVIDERS: ATTEND Specialist
DX: M51.36 Other intervertebral disc degeneration, lumbar region (principal); M47.816 Spondylosis without myelopathy or radiculopathy, lumbar region; Z88.2 Allergy status to sulfonamides; Z79.82 Long term (current) use of aspirin
CPT/HCPCS: 99211

== ENCOUNTER → 2024-04-22 | Outpatient (CLI) | payer OTHER ==
[2024-04-22 11:17] VITALS: BP 125/69; PULSE 76; RESP 16; TEMP 97.1
--- NOTE | 2024-04-22 15:03 | P.PAINPG ---
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 Pt states pain level is provoked at 8 /10 in intensity, constant, predominantly axial, localized in the lower lumbar spine, sharp in character w occasional shooting pain towards the BL hip and BLEs. Pain is provoked by L reddy ed weight bearing activity. Pain is alleviated by PT weekly x 2 yrs w last visit in Jun 2023, use of a hot tub, yoga exercises / stretches daily > 1 yr which he is currently in, medications, topical , repositioning and rest. Oswestry axial pain score at 14. Interventional procedures include BL TFESI L5-S1 x1 (Jan 2024) Medications include [place], Neurontin, Naproxen, Robaxin, Lidoderm REVIEW OF ORGAN SYSTEMS: CONSTITUTIONAL: No fevers or chills. No recent weight loss. NEUROLOGICAL: + numbness and tingling along the distal extremities. No seizure disorders or headaches. MUSCULOSKELETAL: + pain PSYCHIATRIC: Denies current depression or suicidal thoughts. Physical Examinations : Constitutional : Cooperative , not in acute distress . Neurologic : Cranial nerve II to XII intact. No focal neurological deficits. Psychiatric : alert & oriented x 3. Matching mood & appropriate affect. Judgment & insight intact. Musculoskeletal : Cervical Spine Motor strength in the deltoid and biceps: Normal right side. Normal Left side Motor strength biceps and the wrist extensors: Normal right side . Normal left side Motor strength in the triceps muscle: Normal right side. Normal left side Deep tendon reflexes: Normal at the biceps. Normal at Brachioradialis. Normal at triceps Vertebral body tenderness to deep palpation over Cervical facet loading test: positive bilaterally Spurling test: positive bilaterally Neck distraction test: positive bilaterally Altaf sign: positive bilaterally Lumbar spine Motor strength lower extremities ,thigh and legs 5/5 Right side , 5/5 Left side Deep tendon reflexes : Normal Knee Jerk. Normal Ankle Jerk Vertebral body tenderness over L5 Perez Test positive BL L5-S1 Lumbar facet Loading Test: positive Right / positive Left Range of motion of the lumbar spine Flexion 30 degrees, extension 10 degrees Straight Leg Raise test: Left/ Right positive at 35 degrees Rudy test: positive right / positive left. Severe tenderness over the Sacroiliac joint on the Right / Left sides Robynlen test: positive bilaterally Seated flexion test: positive bilaterally. Sacral spine : Severe tenderness over the Sacroiliac joint: right side / left side Range of motion: Flexion of the lumbar spine <60 degrees Range of motion: Extension of the lumbar spine <20 degrees Gaenslen's Test positive Marcin's Test positive Rudy test: positive right side / left side Thigh Thrust Test Sacral Thrust Test Imaging: MRI noncontrast of the lumbar spine from 06/20/23 review Assessment/ Plan : Lumbar DDD Recommendation of BL TFESI L5-S1 #2. May need a series of injections for optimal pain relief. Risks, benefits of procedure discussed and patient verbalized understanding. Protocol for discontinuation/continuation of med ication surrounding procedure discussed. All questions answered. I have spent greater than 30 minutes on patient care today. Dr Vinson was available by phone for the evaluation of this patient. The time was used to review the medical records including relevant urine studies and Prescription history (MAPs), review of the available imaging, evaluation and examination of the patient, coordination of care with the medical staff and if applicable referring physicians, as well as creation of the medical record PQRS Narrative: Smoking Status Never smoker Hx Alcohol Use (MH) No Home Medications: Ambulatory Orders Aspirin [Adult Low Dose Aspirin EC] 81 mg PO QAM 01/01/16 Naproxen 500 mg PO Q12HR PRN 01/01/16 Simvastatin [Zocor] 40 mg PO HS 01/01/16 Albuterol Inhaler [Ventolin Hfa Inhaler] 2 puff INHALATION RT-TID PRN 12/30/20 Budesonide-Formot 160-4.5 Mcg [Symbicort 160-4.5 Mcg Inhaler] 2 puff INHALATION BID PRN 12/30/20 Fluticasone Nasal [place] [Flonase Nasal [place]] 2 spr EA NOSTRIL BID 12/30/20 HYDROcodone/APAP 10-325MG [[place] 10-325] 1 tab PO QID PRN 12/30/20 Lidocaine 5% Patch [Lidoderm] 1 patch TOPICAL TID PRN 12/30/20 Ammonium Lactate Cream [Lac-Hydrin 12% Cream] 1 applic TOPICAL HS PRN 06/17/22 Diclofenac Sodium Gel [Voltaren Gel] 2 gm TOPICAL DAILY PRN 06/17/22 Ketoconazole 2% Shampoo [Nizoral] 1 applic TOPICAL Q48H 06/17/22 Nystatin 1 applic TOPICAL DAILY PRN 06/17/22 Sildenafil Citrate [Viagra] 100 mg PO DAILY PRN 06/17/22 Triamcinolone Acetonide [Triamcinolone Acetonide 0.025%] 1 applic TOPICAL DIRECTED PRN 06/17/22 methocarbamoL [Methocarbamol] 750 mg PO QID 06/17/22 amLODIPine BESYLATE 5 mg PO HS 08/29/23 Cetirizine HCl [Zyrtec] 10 mg PO DAILY 10/09/23 Gabapentin [Neurontin] 100 mg PO TID 10/13/23 Controlled Substance Measures - Controlled Substance Measures Is patient prescribed a controlled substance at discharge?: No
== END ==
LOC: PNWHC3 10:46
PROVIDERS: ATTEND Specialist
DX: M51.17 Intervertebral disc disorders with radiculopathy, lumbosacral region (principal); M47.896 Other spondylosis, lumbar region; Z88.2 Allergy status to sulfonamides
CPT/HCPCS: 99211

== ENCOUNTER 2024-04-30 11:08 | Day surgery (SDC) | payer OTHER ==
[~2024-04-30 11:08] MED LIST changes: -DEXAMETHASONE SOD PHOSPHATE 4 MG/ML 1 ML VIAL IV ONE; -LIDOCAINE 1% (10MG/ML) FOR IV START INTRADERMA PRN; -MIDAZOLAM 2 MG/2 ML VIAL IV PRN; -ONDANSETRON 4 MG/2 ML VIAL IVP ONE
[2024-04-30 11:33] VITALS: RESP 16; TEMP 97.8
[2024-04-30] MEDS ORDERED: methylPREDNISolone ACETATE 80 MG/ML 1 ML VIAL ONE (11:59)
[2024-04-30] MEDS ORDERED: IOPAMIDOL M200 10 ML VIAL ONE (11:59)
--- NOTE | 2024-04-30 12:11 | P.PCN ---
Date of Procedure: 04/30/24 Procedure(s) Performed: PREOPERATIVE DIAGNOSIS: 1-Lumbar radiculopathy . 2-lumbar degenerative disc disease. 3-lumbar spondylosis with lumbar facet arthropathy without myelopathy POSTOPERATIVE DIAGNOSIS: 1-lumbar radiculopathy. 2-lumbar degenerative disc disease. 3-lumbar spondylosis with facet arthropathy without myelopathy PROCEDURE 1. Transforaminal epidural steroid injection under fluoroscopic guidance at Bilateral L5-S1 level. (Fluoroscopy images stored on file in the radiology Department ) 2. Lumbar epidurogram . ANESTHESIA: Local with 1% lidocaine 3 ml. EBL: Minimal PROCEDURE INDICATION: The patient with low back pain and radiculopathy symptoms unresponsive to conservative treatment. PROCEDURE DESCRIPTION / TECHNIQUE: The patient was seen and identified in the preoperative area. Risks, benefits, complications, and alternatives were discussed with the patient. The patient agreed to proceed with the procedure and signed the consent. IV was started, and vital signs were stable. Patient was taken to the OR and time out was completed. The patient was placed in the prone position on procedure table and a pillow was placed under the abdomen to reduce lumbar lordosis. The lumbosacral area was prepped and draped in the usual sterile fashion. Critical pause was taken. Vital signs were closely monitored during the procedure. Using oblique fluoroscopy, the chin of the ``Jaswinder dog at Right L5-S1 level was identified, and the skin and deeper tissues just below was localized with 1% lidocaine. Subsequently, a 22-gauge 5-inch spinal needle was advanced under a tunneled view fluoroscopic guidance just underneath the chin of the ``Jaswinder dog at the right L5-S1 Under lateral fluoroscopy, the needle was then advanced to the posterior border of the interforaminal space. After negative aspiration of CSF and blood and with no paresthesias, 1 mL Isovue 200 contrast dye was injected excellent epidurogram and outlining of the nerve root Subsequently, 3 mL of block solution containing 30 mg Depo-Medrol and 2 mL of 0.9% normal saline PF was injected. Needle was removed and the same procedure was repeated at the Left L5-S1. At the end of the procedure, skin was cleansed, and bandages were applied. COMPLICATIONS:none DISPOSITION / PLANS: The patient was placed in a supine position and transferred to the recovery area in a stable condition for observation. There was no evidence of lower extremity motor or sensory deficit after the procedure. Patient was discharged from the recovery room after meeting discharge criteria. Home discharge instructions were given to the patient by the staff. The patient was reexamined prior to discharge.
[2024-04-30 12:16] VITALS: BP 129/73; PULSE 80
--- NOTE | 2024-04-30 12:35 | FL ---
Fluoroscopy INDICATION: Pain FINDINGS: Fluoroscopy time: 10.9 seconds. Total dose area product (DAP) in uGy*m?, mGy*cm? (or similar): 0.3605 Images obtained: 0. IMPRESSION: 1. Documentation of fluoroscopy.
== END 2024-04-30 12:33 | disposition home or self-care (01) ==
LOC: ORPAIN 11:08
PROVIDERS: ATTEND Specialist
DX: M47.26 Other spondylosis with radiculopathy, lumbar region (principal); M51.16 Intervertebral disc disorders with radiculopathy, lumbar region; Z88.2 Allergy status to sulfonamides; Z79.82 Long term (current) use of aspirin; Z79.1 Long term (current) use of non-steroidal anti-inflammatories (NSAID)
CPT/HCPCS: 64483; Q9966; J1010

== ENCOUNTER → 2024-05-22 | Outpatient (CLI) | payer OTHER ==
[2024-05-22 11:05] VITALS: BP 158/98; PULSE 63; RESP 16; TEMP 97.5
--- NOTE | 2024-05-22 14:02 | P.PAINPG ---
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 Pt states he experienced 70 % pain relief x 3 wks s/p procedure. Pt states pain level is provoked at 5 /10 in intensity, constant, predominantly axial, localized in the lower lumbar spine, sharp in character w occasional shooting pain towards the BL hip and BLEs. Pain is provoked by L sided weight bearing activity. Pain is alleviated by PT weekly x 2 yrs w last visit in Jun 2023, use of a hot tub, yoga exercises / stretches daily > 1 yr which he is currently in, medications, topical , repositioning and rest. Oswestry axial pain score at 12. Interventional procedures include BL TFESI L5-S1 x1 (02/03, 05/06) Medications include [place], Neurontin, Naproxen, Robaxin, Lidoderm REVIEW OF ORGAN SYSTEMS: CONSTITUTIONAL: No fevers or chills. No recent weight loss. NEUROLOGICAL: + numbness and tingling along the distal extremities. No seizure disorders or headaches. MUSCULOSKELETAL: + pain PSYCHIATRIC: Denies current depression or suicidal thoughts. Physical Examinations : Constitutional : Cooperative , not in acute distress . Neurologic : Cranial nerve II to XII intact. No focal neurological deficits. Psychiatric : alert & oriented x 3. Matching mood & appropriate affect. Judgment & insight intact. Musculoskeletal : Cervical Spine Motor strength in the deltoid and biceps: Normal right side. Normal Left side Motor strength biceps and the wrist extensors: Normal right side . Normal left side Motor strength in the triceps muscle: Normal right side. Normal left side Deep tendon reflexes: Normal at the biceps. Normal at Brachioradialis. Normal at triceps Vertebral body tenderness to deep palpation over Cervical facet loading test: positive bilaterally Spurling test: positive bilaterally Neck distraction test: positive bilaterally Altaf sign: positive bilaterally Lumbar spine Motor strength lower extremities ,thigh and legs 5/5 Right side , 5/5 Left side Deep tendon reflexes : Normal Knee Jerk. Normal Ankle Jerk Vertebral body tenderness over L5 Perez Test positive BL L5-S1 Lumbar facet Loading Test: positive Right / positive Left Range of motion of the lumbar spine Flexion 30 degrees, extension 10 degrees Straight Leg Raise test: Left/ Right positive at 35 degrees Rudy test: positive right / positive left. Severe tenderness over the Sacroiliac joint on the Right / Left sides Gaenslen test: positive bilaterally Seated flexion test: positive bilaterally. Sacral spine : Severe tenderness over the Sacroiliac joint: right side / left side Range of motion: Flexion of the lumbar spine <60 degrees Range of motion: Extension of the lumbar spine <20 degrees Gaenslen's Test positive Marcin's Test positive Rudy test: positive right side / left side Thigh Thrust Test Sacral Thrust Test Imaging: MRI non contrast of the lumbar spine from 06/20/23 reviewed Assessment/ Plan : Lumbar DDD Recommendation of BL TFESI L5-S1 #3. May need a series of injections for optimal pain relief. Risks, benefits of procedure discussed and patient verbalized understanding. Protocol for discontinuation/continuation of medication surrounding procedure discussed. All questions answered. I have spent greater than 30 minutes on patient care today. Dr Vinson was available by phone for the evaluation of this patient. The time was used to review the medical records including relevant urine studies and Prescription history (MAPs), review of the available imaging, evaluation and examination of the patient, coordination of care with the medical staff and if applicable referring physicians, as well as creation of the medical record - Pain Location Bilateral Lower Back Non-Pharmacological Interventions: Exercise, Heat, Ice, Inactivity, Stretching Pharmacological Interventions: Epidural, PRN Medication, Scheduled Medication, Topical Medication PQRS Narrative: Smoking Status Never smoker Hx Alcohol Use (MH) No Home Medications: Ambulatory Orders Aspirin [Adult Low Dose Aspirin EC] 81 mg PO QAM 01/01/16 Naproxen 500 mg PO Q12HR PRN 01/01/16 Simvastatin [Zocor] 40 mg PO HS 01/01/16 Albuterol Inhaler [Ventolin Hfa Inhaler] 2 puff INHALATION RT-TID PRN 12/30/20 Budesonide-Formot 160-4.5 Mcg [Symbicort 160-4.5 Mcg Inhaler] 2 puff INHALATION BID PRN 12/30/20 Fluticasone Nasal [place] [Flonase Nasal [place]] 2 spr EA NOSTRIL BID 12/30/20 HYDROcodone/APAP 10-325MG [[place] 10-325] 1 tab PO QID PRN 12/30/20 Lidocaine 5% Patch [Lidoderm] 1 patch TOPICAL TID PRN 12/30/20 Ammonium Lactate Cream [Lac-Hydrin 12% Cream] 1 applic TOPICAL HS PRN 06/17/22 Diclofenac Sodium Gel [Voltaren Gel] 2 gm TOPICAL DAILY PRN 06/17/22 Ketoconazole 2% Shampoo [Nizoral] 1 applic TOPICAL Q48H 06/17/22 Nystatin 1 applic TOPICAL DAILY PRN 06/17/22 Triamcinolone Acetonide [Triamcinolone Acetonide 0.025%] 1 applic TOPICAL DIRECTED PRN 06/17/22 methocarbamoL [Methocarbamol] 750 mg PO QID 06/17/22 amLODIPine BESYLATE 5 mg PO HS 08/29/23 Gabapentin [Neurontin] 300 mg PO TID 10/13/23 B12 (Unk) 1,000 mcg PO DAILY 04/26/24 Calcium Vit D (Unk) 1 tab PO DAILY 04/26/24 Citoplorex 8 %(Unk) 1 dose TOPICAL DIRECTED 04/26/24 Coq10 (Unk) 200 mg PO DAILY 04/26/24 Dextran/Hypromellose/Glycerin [Artificial Tears 0.1-0.2-0.3%] 1 drop BOTH EYES DIRECTED 04/26/24 Fludosimne/Chrondroitin(Unk) 1 dose PO DAILY 04/26/24 Multivitamins, Thera [Multivitamin (formulary)] 1 tab PO DAILY 04/26/24 Myacinamide(Unk) 1 tab PO DAILY 04/26/24 [place]-3/Dha/Epa/Fish Oil [Fish Oil 1,000 mg Softgel] 1,000 mg PO DAILY 04/26/24 Tumeric (Unk) 1 tab PO DAILY 04/26/24 Vit C(Unk) 500 mg PO DAILY 04/26/24 Vit D(Unk) 1,250 mcg PO WEEKLY 04/26/24 Vit E (Unk) 180 mg PO DAILY 04/26/24 Vit K(Unk) 100 mcg PO DAILY 04/26/24 Controlled Substance Measures - Controlled Substance Measures Is patient prescribed a controlled substance at discharge?: No
== END ==
LOC: PNWHC3 10:50
PROVIDERS: ATTEND Specialist
DX: M51.37 Other intervertebral disc degeneration, lumbosacral region (principal); Z88.2 Allergy status to sulfonamides
CPT/HCPCS: 99211

== ENCOUNTER 2024-06-06 13:17 | Day surgery (SDC) | payer OTHER ==
[2024-06-05 11:20] VITALS: BMI 36.1
[2024-06-06 13:42] VITALS: RESP 16; TEMP 98.1
[2024-06-06] MEDS ORDERED: methylPREDNISolone ACETATE 80 MG/ML 1 ML VIAL ONE (13:56)
[2024-06-06] MEDS ORDERED: IOPAMIDOL M200 10 ML VIAL ONE (13:56)
--- NOTE | 2024-06-06 14:06 | P.PCN ---
Date of Procedure: 06/06/24 Procedure(s) Performed: PREOPERATIVE DIAGNOSIS: 1-Lumbar radiculopathy . 2-lumbar degenerative disc disease. 3-lumbar spondylosis with lumbar facet arthropathy without myelopathy POSTOPERATIVE DIAGNOSIS: 1-lumbar radiculopathy. 2-lumbar degenerative disc disease. 3-lumbar spondylosis with facet arthropathy without myelopathy PROCEDURE 1. Transforaminal epidural steroid injection under fluoroscopic guidance at Bilateral L5-S1 level. (Fluoroscopy images stored on file in the radiology Department ) 2. Lumbar epidurogram . ANESTHESIA: Local with 1% lidocaine 3 ml. EBL: Minimal PROCEDURE INDICATION: The patient with low back pain and radiculopathy symptoms unresponsive to conservative treatment. PROCEDURE DESCRIPTION / TECHNIQUE: The patient was seen and identified in the preoperative area. Risks, benefits, complications, and alternatives were discussed with the patient. The patient agreed to proceed with the procedure and signed the consent. IV was started, and vital signs were stable. Patient was taken to the OR and time out was completed. The patient was placed in the prone position on procedure table and a pillow was placed under the abdomen to reduce lumbar lordosis. The lumbosacral area was prepped and draped in the usual sterile fashion. Critical pause was taken. Vital signs were closely monitored during the procedure. Using oblique fluoroscopy, the chin of the ``Jaswinder dog at Right L5-S1 level was identified, and the skin and deeper tissues just below was localized with 1% lidocaine. Subsequently, a 22-gauge 5-inch spinal needle was advanced under a tunneled view fluoroscopic guidance just underneath the chin of the ``Jaswinder dog at the right L5-S1 Under lateral fluoroscopy, the needle was then advanced to the posterior border of the interforaminal space. After negative aspiration of CSF and blood and with no paresthesias, 1 mL Isovue 200 contrast dye was injected excellent epidurogram and outlining of the nerve root Subsequently, 3 mL of block solution containing 30 mg Depo-Medrol and 2 mL of 0.9% normal saline PF was injected. Needle was removed and the same procedure was repeated at the Left L5-S1. At the end of the procedure, skin was cleansed, and bandages were applied. COMPLICATIONS:none DISPOSITION / PLANS: The patient was placed in a supine position and transferred to the recovery area in a stable condition for observation. There was no evidence of lower extremity motor or sensory deficit after the procedure. Patient was discharged from the recovery room after meeting discharge criteria. Home discharge instructions were given to the patient by the staff. The patient was reexamined prior to discharge.
[2024-06-06 14:28] VITALS: BP 125/74; PULSE 71
--- NOTE | 2024-06-06 14:37 | FL ---
Intraoperative/procedural fluoroscopic services were provided for lumbar pain management. Total fluor oscopy time is 15.2 seconds with a total of 3 submitted images to PACS. Total DAP 0.32539 mGym2. Ple ase see the operative note for further details.
== END 2024-06-06 14:35 | disposition home or self-care (01) ==
LOC: ORPAIN 13:17
PROVIDERS: ATTEND Specialist
DX: M47.26 Other spondylosis with radiculopathy, lumbar region (principal); M51.16 Intervertebral disc disorders with radiculopathy, lumbar region; Z79.1 Long term (current) use of non-steroidal anti-inflammatories (NSAID); Z79.82 Long term (current) use of aspirin; Z88.2 Allergy status to sulfonamides
CPT/HCPCS: 64483; Q9966; J1010

== ENCOUNTER → 2024-08-29 | Outpatient (CLI) | payer OTHER ==
[2024-08-29 15:05] VITALS: BP 141/89; PULSE 89; RESP 16
--- NOTE | 2024-08-29 15:11 | P.PAINPG ---
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 Pt states he experienced 80 % pain relief x 5 wks s/p procedure. Pt states pain level is provoked at 8 /10 in intensity, constant, predominantly axial, localized in the lower lumbar spine, sharp in character without shooting pain. Pain is provoked by L sided weight bearing activity. Pain is alleviated by PT weekly x 2 yrs w last visit in Jun 2023, use of a hot tub, yoga exercises / stretches daily > 1 yr which he is currently in, medications, topical , repositioning and rest. Interventional procedures include BL TFESI L5-S1 x3 (02/03, 05/06, 06/05) Medications include [place], Neurontin, Naproxen, Robaxin, Lidoderm REVIEW OF ORGAN SYSTEMS: CONSTITUTIONAL: No fevers or chills. No recent weight loss. NEUROLOGICAL: + numbness and tingling along the distal extremities. No seizure disorders or headaches. MUSCULOSKELETAL: + pain PSYCHIATRIC: Denies current depression or suicidal thoughts. Physical Examinations : Constitutional : Cooperative , not in acute distress . Neurologic : Cranial nerve II to XII intact. No focal neurological deficits. Psychiatric : alert & oriented x 3. Matching mood & appropriate affect. Judgment & insight intact. Musculoskeletal : Cervical Spine Motor strength in the deltoid and biceps: Normal right side. Normal Left side Motor strength biceps and the wrist extensors: Normal right side . Normal left side Motor strength in the triceps muscle: Normal right side. Normal left side Deep tendon reflexes: Normal at the biceps. Normal at Brachioradialis. Normal at triceps Vertebral body tenderness to deep palpation over Cervical facet loading test: positive bilaterally Spurling test: positive bilaterally Neck distraction test: positive bilaterally Altaf sign: positive bilaterally Lumbar spine Motor strength lower extremities ,thigh and legs 5/5 Right side , 5/5 Left side Deep tendon reflexes : Normal Knee Jerk. Normal Ankle Jerk Vertebral body tenderness over L5 Perez Test positive BL L5-S1 Lumbar facet Loading Test: positive Right / positive Left Range of motion of the lumbar spine Flexion 30 degrees, extension 10 degrees Straight Leg Raise test: Left/ Right positive at 35 degrees Rudy test: positive right / positive left. Severe tenderness over the Sacroiliac joint on the Right / Left sides Gaenslen test: positive bilaterally Seated flexion test: positive bilaterally. Sacral spine : Severe tenderness over the Sacroiliac joint: right side / left side Range of motion: Flexion of the lumbar spine <60 degrees Range of motion: Extension of the lumbar spine <20 degrees Gaenslen's Test positive Marcin's Test positive Rudy test: positive right side / left side Thigh Thrust Test Sacral Thrust Test Imaging: MRI non contrast of the lumbar spine from 06/20/23 reviewed Assessment/ Plan : Lumbar radiculopathy Recommendation of BL TFESI L5-S1 #1. Risks, benefits of procedure discussed and patient verbalized understanding. Protocol for discontinuation/continuation of medication surrounding procedure discussed. Minimal anesthesia including Fentanyl and Versed if clinically indicated. All questions answered. I have spent greater than 30 minutes on patient care today. Dr Vinson was available by phone for the evaluation of this patient. The time was used to revi ew the medical records including relevant urine studies and Prescription history (MAPs), review of the available imaging, evaluation and examination of the patient, coordination of care with the medical staff and if applicable referring physicians, as well as creation of the medical record PQRS Narrative: Smoking Status Never smoker Hx Alcohol Use (MH) No Home Medications: Ambulatory Orders Aspirin [Adult Low Dose Aspirin EC] 81 mg PO QAM 01/01/16 Naproxen 500 mg PO Q12HR PRN 01/01/16 Simvastatin [Zocor] 40 mg PO HS 01/01/16 Albuterol Inhaler [Ventolin Hfa Inhaler] 2 puff INHALATION RT-TID PRN 12/30/20 Budesonide-Formot 160-4.5 Mcg [Symbicort 160-4.5 Mcg Inhaler] 2 puff INHALATION BID PRN 12/30/20 Fluticasone Nasal Rheems [Flonase Nasal Rheems] 2 spr EA NOSTRIL BID 12/30/20 HYDROcodone/APAP 10-325MG [[place] 10-325] 1 tab PO QID PRN 12/30/20 Lidocaine 5% Patch [Lidoderm] 1 patch TOPICAL TID PRN 12/30/20 Ammonium Lactate Cream [Lac-Hydrin 12% Cream] 1 applic TOPICAL HS PRN 06/17/22 Diclofenac Sodium Gel [Voltaren Gel] 2 gm TOPICAL DAILY PRN 06/17/22 Ketoconazole 2% Shampoo [Nizoral] 1 applic TOPICAL Q48H 06/17/22 Nystatin 1 applic TOPICAL DAILY PRN 06/17/22 Triamcinolone Acetonide [Triamcinolone Acetonide 0.025%] 1 applic TOPICAL DIRECTED PRN 06/17/22 methocarbamoL [Methocarbamol] 750 mg PO QID 06/17/22 amLODIPine BESYLATE 5 mg PO HS 08/29/23 Gabapentin [Neurontin] 300 mg PO TID 10/13/23 B12 (Unk) 1,000 mcg PO DAILY 04/26/24 Calcium Vit D (Unk) 1 tab PO DAILY 04/26/24 Citoplorex 8 %(Unk) 1 dose TOPICAL DIRECTED 04/26/24 Coq10 (Unk) 200 mg PO DAILY 04/26/24 Dextran/Hypromellose/Glycerin [Artificial Tears 0.1-0.2-0.3%] 1 drop BOTH EYES DIRECTED 04/26/24 Fludosimne/Chrondroitin(Unk) 1 dose PO DAILY 04/26/24 Multivitamins, Thera [Multivitamin (formulary)] 1 tab PO DAILY 04/26/24 Myacinamide(Unk) 1 tab PO DAILY 04/26/24 [place]-3/Dha/Epa/Fish Oil [Fish Oil 1,000 mg Softgel] 1,000 mg PO DAILY 04/26/24 Tumeric (Unk) 1 tab PO DAILY 04/26/24 Vit C(Unk) 500 mg PO DAILY 04/26/24 Vit D(Unk) 1,250 mcg PO WEEKLY 04/26/24 Vit E (Unk) 180 mg PO DAILY 04/26/24 Vit K(Unk) 100 mcg PO DAILY 04/26/24 Controlled Substance Measures - Controlled Substance Measures Is patient prescribed a controlled substance at discharge?: No
== END ==
LOC: PNWHC3 13:54
PROVIDERS: ATTEND Specialist
DX: M99.63 Osseous and subluxation stenosis of intervertebral foramina of lumbar region (principal); M47.26 Other spondylosis with radiculopathy, lumbar region; Z88.2 Allergy status to sulfonamides
CPT/HCPCS: 99211

== ENCOUNTER 2024-09-19 12:02 | Day surgery (SDC) | payer OTHER ==
[2024-09-19 12:17] VITALS: TEMP 97
[2024-09-19] MEDS ORDERED: LACTATED RINGERS 1,000 ML IV SCH (12:18)
[2024-09-19] MEDS ORDERED: IOPAMIDOL M300 15ML VIAL ONE (12:56)
[2024-09-19] MEDS ORDERED: DEXAMETHASONE SOD PHOSPHATE 10 MG/ML 1 ML VIAL ONE (12:56)
[2024-09-19] MEDS ORDERED: ROPIVACAINE 5MG/ML 20ML VIAL ONE (12:56)
--- NOTE | 2024-09-19 13:27 | P.PCN ---
Description of Procedure: PREOPERATIVE DIAGNOSIS: 1-Lumbar radiculopathy . 2-lumbar degenerative disc disease. 3-lumbar spondylosis with lumbar facet arthropathy without myelopathy POSTOPERATIVE DIAGNOSIS: 1-lumbar radiculopathy. 2-lumbar degenerative disc disease. 3-lumbar spondylosis with facet arthropathy without myelopathy PROCEDURE 1. Transforaminal epidural steroid injection under fluoroscopic guidance at BILATERAL L5-S1 level. (Fluoroscopy images stored on file in the radiology Department ) 2. Lumbar epidurogram . ANESTHESIA: Local with 1% lidocaine 5 ml. subcutaneously. Continuous pulse ox, EKG, blood pressure and verbal communication was maintained with the patient. EBL: Minimal PROCEDURE INDICATION: The patient with low back pain and radiculopathy symptoms unresponsive to conservative treatment. The patient was seen and identified in the preoperative area. Risks, benefits, complications, and alternatives were discussed with the patient. The patient agreed to proceed with the procedure and signed the consent. IV was started, and vital signs were stable. PROCEDURE DESCRIPTION / TECHNIQUE: After getting consent, patient was taken to the OR and time out was completed. The patient was placed in the prone position on procedure table and a pillow was placed under the abdomen to reduce lumbar lordosis. The lumbosacral area was prepped and draped in the usual sterile fashion. Critical pause was taken. After injecting 5 mL of plain 1% lidocaine subcutaneously, under oblique view of the fluoroscope, a 22-gauge spinal needle was introduced under the tunnel view of the fluoroscope on the RIGHT side and the needle was advanced so that the tip of the needle was at the posterior inferior quadrant of the intervertebral for amen at the lateral view of the fluoroscope and in the lateral third of the facet column in the AP view of the fluoroscope. Negative CSF, negative blood, negative paresthesia. After needle position confirmation by AP and cross table lateral view, 3 mL of Isovue-M 200 contrast was injected under continuous fluoroscope. No contrast was noted in the intrathecal or intravascular space. The epidurogram was noted. Again after repeated negative aspiration 2.5 mL solution was injected which consists 1 mL of normal saline mixed with 1.5 mL of 15 mg dexamethasone. Needle was removed . Same procedure was repeated at the LEFT side at same level , using contrast under continuous fluoroscopy and using same amount of dexamethasone. At the end of the procedure, skin was cleansed, and bandages were applied. DISPOSITION / PLANS: No complication. The patient tolerated the procedure well. The patient was placed in a supine position and transferred to the recovery area in a stable condition for observation. There was no evidence of lower extremity motor or sensory deficit after the procedure. Patient was discharged from the recovery room after meeting discharge criteria. Home discharge instru ctions were given to the patient by the staff. The patient was reexamined prior to discharge.
--- NOTE | 2024-09-19 13:34 | FL ---
Intraoperative/procedural fluoroscopic services were provided for bilateral transforaminal epidural s teroid injection. Total fluoroscopy time is 93.6 seconds with a total of 5 submitted images to PACS. Total DAP 1.15 mGym2. Please see the operative note for further details. [facility], , 09/19/2024 1:31 PM
[2024-09-19 13:39] VITALS: BP 114/76; PULSE 62; RESP 18
== END 2024-09-19 13:45 | disposition home or self-care (01) ==
LOC: ORPAIN 12:02
PROVIDERS: ATTEND Pain Medicine Interventional Pain Medicine
DX: M47.26 Other spondylosis with radiculopathy, lumbar region (principal); M51.16 Intervertebral disc disorders with radiculopathy, lumbar region; I10 Essential (primary) hypertension; Z79.82 Long term (current) use of aspirin; Z88.2 Allergy status to sulfonamides

== ENCOUNTER → 2024-10-16 | Outpatient (CLI) | payer OTHER ==
[2024-10-16 10:51] VITALS: BP 165/97; PULSE 80; RESP 16; TEMP 97.5
--- NOTE | 2024-10-16 15:05 | P.PAINPG ---
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 Pt states he experienced 50 % pain relief x 1 mo s/p procedure. Pt states pain level is provoked at 8 /10 in intensity, constant, predominantly axial, localized in the lower lumbar spine, sharp in character without shooting pain. Pain is provoked by L sided weight bearing activity. Pain is alleviated by PT weekly x 2 yrs w last visit in Jun 2023, use of a hot tub, yoga exercises / stretches daily > 1 yr which he is currently in, medications, topical , repositioning and rest. Interventional procedures include BL TFESI L5-S1 x1 (02/03, 05/06, 06/05, 10/06) Medications include [place], Neurontin, Naproxen, Robaxin, Lidoderm REVIEW OF ORGAN SYSTEMS: CONSTITUTIONAL: No fevers or chills. No recent weight loss. NEUROLOGICAL: + numbness and tingling along the distal extremities. No seizure disorders or headaches. MUSCULOSKELETAL: + pain PSYCHIATRIC: Denies current depression or suicidal thoughts. Physical Examinations : Constitutional : Cooperative , not in acute distress . Neurologic : Cranial nerve II to XII intact. No focal neurological deficits. Psychiatric : alert & oriented x 3. Matching mood & appropriate affect. Judgment & insight intact. Musculoskeletal : Cervical Spine Motor strength in the deltoid and biceps: Normal right side. Normal Left side Motor strength biceps and the wrist extensors: Normal right side . Normal left side Motor strength in the triceps muscle: Normal right side. Normal left side Deep tendon reflexes: Normal at the biceps. Normal at Brachioradialis. Normal at triceps Vertebral body tenderness to deep palpation over Cervical facet loading test: positive bilaterally Spurling test: positive bilaterally Neck distraction test: positive bilaterally Altaf sign: positive bilaterally Lumbar spine Motor strength lower extremities ,thigh and legs 5/5 Right side , 5/5 Left side Deep tendon reflexes : Normal Knee Jerk. Normal Ankle Jerk Vertebral body tenderness over L5 Perez Test positive BL L5-S1 Lumbar facet Loading Test: positive Right / positive Left Range of motion of the lumbar spine Flexion 30 degrees, extension 10 degrees Straight Leg Raise test: Left/ Right positive at 35 degrees Rudy test: positive right / positive left. Severe tenderness over the Sacroiliac joint on the Right / Left sides Gaenslen test: positive bilaterally Seated flexion test: positive bilaterally. Sacral spine : Severe tenderness over the Sacroiliac joint: right side / left side Range of motion: Flexion of the lumbar spine <60 degrees Range of motion: Extension of the lumbar spine <20 degrees Gaenslen's Test positive Marcin's Test positive Rudy test: positive right side / left side Thigh Thrust Test Sacral Thrust Test Imaging: MRI non contrast of the lumbar spine from 06/20/23 reviewed Assessment/ Plan : Lumbar radiculopathy Recommendation of TENS unit use at home. M54.16 G89.4 Script provided. Risks, benefits discussed and patient verbalized understanding. All questions answered. I have spent greater than 30 minutes on patient care today. Dr Vinson was available by phone for the evaluation of this patient. The time was used to review the medical records including relevant urine studies and Prescription history (MAPs), review of the available imaging, evaluation and examination of the patient, coordination of care with the medical staff and if applicable referring physicians, as well as creation of the medical record PQRS Narrative: Smoking Status Never smoker Hx Alcohol Use (MH) No Home Medications: Ambulatory Orders Aspirin [Adult Low Dose Aspirin EC] 81 mg PO QAM 01/01/16 Naproxen 500 mg PO Q12HR PRN 01/01/16 Simvastatin [Zocor] 40 mg PO HS 01/01/16 Albuterol Inhaler [Ventolin Hfa Inhaler] 2 puff INHALATION RT-TID PRN 12/30/20 Budesonide-Formot 160-4.5 Mcg [Symbicort 160-4.5 Mcg Inhaler] 2 puff INHALATION BID PRN 12/30/20 HYDROcodone/APAP 10-325MG [[place] 10-325] 1 tab PO QID PRN 12/30/20 Lidocaine 5% Patch [Lidoderm] 1 patch TOPICAL TID PRN 12/30/20 Ammonium Lactate Cream [Lac-Hydrin 12% Cream] 1 applic TOPICAL HS PRN 06/17/22 Ketoconazole 2% Shampoo [Nizoral] 1 applic TOPICAL Q48H 06/17/22 methocarbamoL [Methocarbamol] 750 mg PO QID 06/17/22 amLODIPine BESYLATE 5 mg PO HS 08/29/23 Gabapentin [Neurontin] 300 mg PO TID 10/13/23 Dextran/Hypromellose/Glycerin [Artificial Tears 0.1-0.2-0.3%] 1 drop BOTH EYES DIRECTED 04/26/24 Controlled Substance Measures - Controlled Substance Measures Is patient prescribed a controlled substance at discharge?: No
== END ==
LOC: PNWHC3 10:19
PROVIDERS: ATTEND Specialist
DX: M47.27 Other spondylosis with radiculopathy, lumbosacral region (principal); Z88.2 Allergy status to sulfonamides
CPT/HCPCS: 99211

== ENCOUNTER → 2025-02-13 | Outpatient (CLI) | payer OTHER ==
[2025-02-13 12:38] VITALS: BP 159/98; PULSE 67; RESP 16; TEMP 97.3
--- NOTE | 2025-02-13 14:22 | P.PAINPG ---
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 Pt states pain level is provoked at 8 /10 in intensity, constant, predominantly axial, localized in the lower lumbar spine, sharp in character without shooting pain. Pain is provoked by L sided weight bearing activity. Pain is alleviated by PT weekly x 2 yrs w last visit in Jun 2023, use of a hot tub, yoga exercises / stretches daily > 1 yr which he is currently in, medications, topical , use of a TENS unit at home twice weekly since Oct 2024, repositioning and rest. Interventional procedures include BL TFESI L5-S1 x4 (02/03, 05/06, 06/05, 10/06) Medications include [place], Neurontin, Naproxen, Robaxin, Lidoderm REVIEW OF ORGAN SYSTEMS: CONSTITUTIONAL: No fevers or chills. No recent weight loss. NEUROLOGICAL: + numbness and tingling along the distal extremities. No seizure disorders or headaches. MUSCULOSKELETAL: + pain PSYCHIATRIC: Denies current depression or suicidal thoughts. Physical Examinations : Constitutional : Cooperative , not in acute distress . Neurologic : Cranial nerve II to XII intact. No focal leanna rological deficits. Psychiatric : alert & oriented x 3. Matching mood & appropriate affect. Judgment & insight intact. Musculoskeletal : Cervical Spine Motor strength in the deltoid and biceps: Normal right side. Normal Left side Motor strength biceps and the wrist extensors: Normal right side . Normal left side Motor strength in the triceps muscle: Normal right side. Normal left side Deep tendon reflexes: Normal at the biceps. Normal at Brachioradialis. Normal at triceps Vertebral body tenderness to deep pal pation over Cervical facet loading test: positive bilaterally Spurling test: positive bilaterally Neck distraction test: positive bilaterally Altaf sign: positive bilaterally Lumbar spine Motor strength lower extremities ,thigh and legs 5/5 Right side , 5/5 Left side Deep tendon reflexes : Normal Knee Jerk. Normal Ankle Jerk Vertebral body tenderness over L5 Perez Test positive BL L5-S1 Lumbar facet Loading Test: positive Right / positive Left Range of motion of the lumbar spine Flexion 30 degrees, extension 10 degrees Straight Leg Raise test: Left/ Right positive at 35 degrees Rudy test: positive right / positive left. Severe tenderness over the Sacroiliac joint on the Right / Left sides Gaenslen test: positive bilaterally Seated flexion test: positive bilaterally. Sacral spine : Severe tenderness over the Sacroiliac joint: right side / left side Range of motion: Flexion of the lumbar spine <60 degrees Range of motion: Extension of the lumbar spine <20 degrees Gaenslen's Test positive Marcin's Test positive Rudy test: positive right side / left side Thigh Thrust Test Sacral Thrust Test Imaging: MRI non contrast of the lumbar spine from 06/20/23 reviewed Assessment/ Plan : Lumbar radiculopathy Recommendation of BL TFESI L5-S1 #1. Risks, benefits discussed and patient verbalized understanding. Protocol for discontinuation/continuation of medication surrounding procedure discussed. Minimal anesthesia including Fentanyl and Versed if clinically indicated. All questions answered. I have spent greater than 30 minutes on patient care today. Dr Vinson was available by phone for the evaluation of this patient. The time was used to review the medical records including relevant urine studies and Prescription history (MAPs), review of the available imaging, evaluation and examination of the patient, coordination of care with the medical staff and if applicable referring physicians, as well as creation of the medical record PQRS Narrative: Smoking Status Never smoker Hx Alcohol Use (MH) No Home Medications: Ambulatory Orders Aspirin [Adult Low Dose Aspirin EC] 81 mg PO QAM 01/01/16 Naproxen 500 mg PO Q12HR PRN 01/01/16 Simvastatin [Zocor] 40 mg PO HS 01/01/16 Albuterol Inhaler [Ventolin Hfa Inhaler] 2 puff INHALATION RT-TID PRN 12/30/20 Budesonide-Formot 160-4.5 Mcg [Symbicort 160-4.5 Mcg Inhaler] 2 puff INHALATION BID PRN 12/30/20 HYDROcodone/APAP 10-325MG [[place] 10-325] 1 tab PO QID PRN 12/30/20 Lidocaine 5% Patch [Lidoderm] 1 patch TOPICAL TID PRN 12/30/20 Ammonium Lactate Cream [Lac-Hydrin 12% Cream] 1 applic TOPICAL HS PRN 06/17/22 Ketoconazole 2% Shampoo [Nizoral] 1 applic TOPICAL Q48H 06/17/22 methocarbamoL [Methocarbamol] 750 mg PO QID 06/17/22 amLODIPine BESYLATE 5 mg PO HS 08/29/23 Gabapentin [Neurontin] 300 mg PO TID 10/13/23 Dextran/Hypromellose/Glycerin [Artificial Tears 0.1-0.2-0.3%] 1 drop BOTH EYES DIRECTED 04/26/24 Controlled Substance Measures - Controlled Substance Measures Is patient prescribed a controlled substance at discharge?: No
== END ==
LOC: PNWHC3 11:00
PROVIDERS: ATTEND Specialist
DX: M47.16 Other spondylosis with myelopathy, lumbar region (principal); Z88.2 Allergy status to sulfonamides
CPT/HCPCS: 99211

== ENCOUNTER 2025-03-04 08:57 | Day surgery (SDC) | payer OTHER ==
[2025-03-04 09:49] VITALS: RESP 16; TEMP 97.6
[2025-03-04] MEDS: IV FLUID CONTINUATION 1,000 ML IV ONE ×2 (09:55→10:26)
[2025-03-04] MEDS: LACTATED RINGERS 1,000 ML BAG IV STA (09:56)
[2025-03-04] MEDS ORDERED: methylPREDNISolone ACETATE 80 MG/ML 1 ML VIAL ONE (10:08)
[2025-03-04] MEDS ORDERED: MIDAZOLAM 2 MG/2 ML VIAL ONE (10:08)
[2025-03-04] MEDS ORDERED: fentaNYL (PF) 50 MCG/ML 2 ML AMP ONE (10:08)
[2025-03-04] MEDS ORDERED: IOPAMIDOL M200 10 ML VIAL ONE (10:08)
--- NOTE | 2025-03-04 10:21 | P.PCN ---
Date of Procedure: 03/04/25 Procedure(s) Performed: PREOPERATIVE DIAGNOSIS: 1-Lumbar radiculopathy . 2-lumbar degenerative disc disease. 3-lumbar spondylosis with lumbar facet arthropathy without myelopathy POSTOPERATIVE DIAGNOSIS: 1-lumbar radiculopathy. 2-lumbar degenerative disc disease. 3-lumbar spondylosis with facet arthropathy without myelopathy PROCEDURE 1. Transforaminal epidural steroid injection under fluoroscopic guidance at Bilateral L5-S1 level. (Fluoroscopy images stored on file in the radiology Department ) 2. Lumbar epidurogram . ANESTHESIA: Moderate sedation with Versed 2 mg ,and fentanyl 100 mcg (sedation started 10:08 ended 10:17 ). EBL: Minimal PROCEDURE INDICATION: The patient with low back pain and radiculopathy symptoms unresponsive to conservative treatment. PROCEDURE DESCRIPTION / TECHNIQUE: The patient was seen and identified in the preoperative area. Risks, benefits, complications, and alternatives were discussed with the patient. The patient agreed to proceed with the procedure and signed the consent. IV was started, sedation was used to decrease the patient's anxiety, and vital signs were stable. Patient was taken to the OR and time out was completed. The patient was placed in the prone position on procedure table and a pillow was placed under the abdomen to reduce lumbar lordosis. The lumbosacral area was prepped and draped in the usual sterile fashion. Critical pause was taken. Vital signs were closely monitored during the procedure. Using oblique fluoroscopy, the chin of the `Maikely dog at Right L5-S1 level was identified, and the skin and deeper tissues just below was localized with 1% lidocaine. Subsequently, a 22-gauge 5-inch spinal needle was advanced under a tunneled view fluoroscopic guidance just underneath the chin of the `Maikely dog at the right L5-S1 Under lateral fluoroscopy, the needle was then advanced to the posterior border of the interforaminal space. After negative aspiration of CSF and blood and with no paresthesias, 1 mL Isovue 200 contrast dye was injected excellent epidurogram and outlining of the nerve root Subsequently, 3 mL of block solution containing 30 mg Depo-Medrol and 2 mL of 0.9% normal saline PF was injected. Needle was removed and the same procedure was repeated at the Left L5-S1. At the end of the procedure, skin was cleansed, and bandages were applied. COMPLICATIONS:none DISPOSITION / PLANS: The patient was placed in a supine position and transferred to the recovery area in a stable condition for observation. There was no evidence of lower extremity motor or sensory deficit after the procedure. Patient was discharged from the recovery room after meeting discharge criteria. Home discharge instructions were given to the patient by the staff. The patient was reexamined prior to discharge.
--- NOTE | 2025-03-04 10:28 | FL ---
EXAMINATION TYPE: FL guided pain mgmt statistic DATE OF EXAM: 03/04/2025 10:24 AM COMPARISON: Pre Operative Images if available both CT/MRI or plain film CLINICAL INDICATION: Male, 69 years old with history of Transforaminal Inj; TECHNIQUE: FL guided pain mgmt statistic, multiple fluoroscopic images provided for procedure. DAP: 0.43991 mGym2 Gycm2 uGym2 cGycm2 or equivalent. FINDINGS: Fluoroscopic images during injection for pain management demonstrate multilevel degeneration changes throughout the spine. No evidence for fracture. No acute process identified. IMPRESSION: 1. No evidence for intraoperative complication. 2. Please see the operative/procedural note for further details. [facility], , 03/04/2025 10:26 AM
[2025-03-04] MEDS ORDERED: LACTATED RINGERS 1,000 ML IV SCH (10:32)
[2025-03-04 10:53] VITALS: BP 134/72; PULSE 75
== END 2025-03-04 10:58 | disposition home or self-care (01) ==
LOC: ORPAIN 08:57
PROVIDERS: ATTEND Specialist
DX: M47.26 Other spondylosis with radiculopathy, lumbar region (principal); M51.16 Intervertebral disc disorders with radiculopathy, lumbar region; Z79.82 Long term (current) use of aspirin; Z79.1 Long term (current) use of non-steroidal anti-inflammatories (NSAID); Z88.2 Allergy status to sulfonamides
CPT/HCPCS: 64483; J2250; J3010; Q9966; J1010

== ENCOUNTER → 2025-04-02 | Outpatient (CLI) | payer OTHER ==
[2025-04-02 13:49] VITALS: BP 123/81; PULSE 75; RESP 16; TEMP 97.7
--- NOTE | 2025-04-02 16:04 | P.PAINPG ---
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 Pt states he experienced 80% pain relief x 4 wks s/p procedure. Pt states pain level is provoked at 2 /10 in intensity, constant, predominantly axial, localized in the lower lumbar spine, sharp in character without shooting pain. Pain is provoked by L sided weight bearing activity. Pain is alleviated by PT weekly x 2 yrs w last visit in Jun 2023, use of a hot tub, yoga exercises / stretches daily > 1 yr which he is currently in, medications, topical , use of a TENS unit at home twice weekly since Oct 2024, repositioning and rest. Interventional procedures include BL TFESI L5-S1 x5 (02/03, 05/06, 06/05, 10/06, 03/07) Medications include [place], Neurontin, Naproxen, Robaxin, Lidoderm REVIEW OF ORGAN SYSTEMS: CONSTITUTIONAL: No fevers or chills. No recent weight loss. NEUROLOGICAL: + numbness and tingling along the distal extremities. No seizure disorders or headaches. MUSCULOSKELETAL: + pain PSYCHIATRIC: Denies current depression or suicidal thoughts. Physical Examinations : Constitutional : Cooperative , not in acute distress . Neurologic : Cranial nerve II to XII intact. No focal neurological deficits. Psychiatric : alert & oriented x 3. Matching mood & appropriate affect. Judgment & insight intact. Musculoskeletal : Cervical Spine Motor strength in the deltoid and biceps: Normal right side. Normal Left side Motor strength biceps and the wrist extensors: Normal right side . Normal left side Motor strength in the triceps muscle: Normal right side. Normal left side Deep tendon reflexes: Normal at the biceps. Normal at Brachioradialis. Normal at triceps Vertebral body tenderness to deep palpation over Cervical facet loading test: positive bilaterally Spurling test: positive bilaterally Neck distraction test: positive bilaterally Altaf sign: positive bilaterally Lumbar spine Motor strength lower extremities ,thigh and legs 5/5 Right side , 5/5 Left side Deep tendon reflexes : Normal Knee Jerk. Normal Ankle Jerk Vertebral body tenderness over L5 Perez Test positive BL L5-S1 Lumbar facet Loading Test: positive Right / positive Left Range of motion of the lumbar spine Flexion 30 degrees, extension 10 degrees Straight Leg Raise test: Left/ Right positive at 35 degrees Rudy test: positive right / positive left. Severe tenderness over the Sacroiliac joint on the Right / Left sides Gaenslen test: positive bilaterally Seated flexion test: positive bilaterally. Sacral spine : Severe tenderness over the Sacroiliac joint: right side / left side Range of motion: Flexion of the lumbar spine <60 degrees Range of motion: Extension of the lumbar spine <20 degrees Gaenslen's Test positive Marcin's Test positive Rudy test: positive right side / left side Thigh Thrust Test Sacral Thrust Test Imaging: MRI non contrast of the lumbar spine from 06/20/23 reviewed Assessment/ Plan : Lumbar radiculopathy Will manage residual pain and may RTC on an as-needed basis. All questions answered. I have spent greater than 30 minutes on patient care today. Dr Vinson was available by phone for the evaluation of this patient. The time was used to review the medical records including relevant urine studies and Prescription history (MAPs), review of the available imaging, evaluation and examination of the patient, coordination of care with the medical staff and if applicable referring physicians, as well as creation of the medical record PQRS Narrative: Smoking Status Never smoker Blood Pressure 123/81 Pain Intensity [Bilateral 2 Lower Back] Scale Used Numeric (1 - 10) Hx Alcohol Use (MH) No Home Medications: Ambulatory Orders Aspirin [Adult Low Dose Aspirin EC] 81 mg PO QAM 01/01/16 Naproxen 500 mg PO Q12HR PRN 01/01/16 Simvastatin [Zocor] 40 mg PO HS 01/01/16 Albuterol Inhaler [Ventolin Hfa Inhaler] 2 puff INHALATION RT-TID PRN 12/30/20 Budesonide-Formot 160-4.5 Mcg [Symbicort 160-4.5 Mcg Inhaler] 2 puff INHALATION BID PRN 12/30/20 HYDROcodone/APAP 10-325MG [[place] 10-325] 1 tab PO QID PRN 12/30/20 Lidocaine 5% Patch [Lidoderm] 1 patch TOPICAL TID PRN 12/30/20 Ammonium Lactate Cream [Lac-Hydrin 12% Cream] 1 applic TOPICAL HS PRN 06/17/22 Ketoconazole 2% Shampoo [Nizoral] 1 applic TOPICAL Q48H 06/17/22 methocarbamoL [Methocarbamol] 750 mg PO QID 06/17/22 amLODIPine BESYLATE 5 mg PO HS 08/29/23 Gabapentin [Neurontin] 300 mg PO TID 10/13/23 Dextran/Hypromellose/Glycerin [Artificial Tears 0.1-0.2-0.3%] 1 drop BOTH EYES DIRECTED 04/26/24 Controlled Substance Measures - Controlled Substance Measures Is patient prescribed a controlled substance at discharge?: No
== END ==
LOC: PNWHC3 13:36
PROVIDERS: ATTEND Specialist
DX: M47.26 Other spondylosis with radiculopathy, lumbar region (principal); G89.29 Other chronic pain; Z88.2 Allergy status to sulfonamides
CPT/HCPCS: 99211

== ENCOUNTER → 2025-04-29 | Outpatient (CLI) | payer OTHER ==
[2025-04-29 16:21] LABS: African American GFR (CKD) >90 (>60 ml/min/1.73 sqM); Blood Urea Nitrogen 20 mg/dL (9-20); Non-African American GFR(CKD) >90 (>60 ml/min/1.73 sqM)
--- NOTE | 2025-05-01 10:47 | CT ---
EXAMINATION TYPE: CT urogram wo/w con DATE OF EXAM: 04/29/2025 5:48 PM COMPARISON: None. CLINICAL INDICATION: Male, 69 years old with history of R31.0, hematuria, hx of prostate ca TECHNIQUE: Axial images were obtained from above the diaphragm to the pubic rami in the axial plane a t 5 mm thick sections. Reconstructed images are reviewed on the computer in the coronal plane. CONTRAST: 100 ml mL of Isovue 300. Study performed DLP: 5588.2 mGycm, Automated exposure control for dose reduction was used. FINDINGS: Limited CT sections are obtained the lung bases. The lung bases are clear. CT ABDOMEN: Liver: Normal Spleen: Normal Pancreas: Normal Adrenal glands: The adrenal glands are normal. Gallbladder: Normal Kidneys: No masses are evident. No hydronephrosis is present. There there are nonobstructing puncta te renal stones at the inferior pole left kidney. Small peripelvic cyst in the inferior pole left kid kady is present. There is a 0.6 cm nonobstructing renal stone superior pole left kidney Is a 2.[address] anterior mid left kidney. 3-D urogram is performed by the technologist on a separate computer. Early and delayed images perform ed through the renal collecting system. No hydronephrosis is evident. Renal calyces infundibula and r enal pelves appear normal. Ureters follow a normal caliber course and contour to the urinary bladder. Aorta: Vascular calcification is within the aorta. Inferior vena cava: Normal. CT PELVIS: Loops of bowel within the abdomen and pelvis are normal. Diverticular changes are within the sigmoid colon. There are loops of bowel which are incompletely distended or lack oral contrast limiting th eir evaluation. Appendix: Normal as visualized. Urinary bladder: Normal. Genitourinary structures: Prostate not visualized. Correlate with surgical history. Osseous structures: No suspicious lytic or sclerotic lesions. Facet degenerative changes are within t he lower lumbar spine. Degenerative disc changes present L5-S1 IMPRESSION: 1. Nonobstructing inferior and superior pole left renal stones. 2. Inferior pole left peripelvic cyst and a superior pole left renal cyst. 3. Diverticulosis without acute diverticulitis. [facility], , 05/01/2025 10:45 AM
== END | disposition home or self-care (01) ==
LOC: RADCTMAIN 14:12
PROVIDERS: ATTEND Family Medicine
DX: N20.0 Calculus of kidney (principal); N28.1 Cyst of kidney, acquired; K57.30 Diverticulosis of large intestine without perforation or abscess without bleeding
CPT/HCPCS: 82565; 84520; 74178; 36415; 74400; Q9967